=== PATIENT | male | born 1945 | race African-American/Black ===

== ENCOUNTER 2017-09-16 06:10 | Emergency (ER) | payer MEDICARE, MEDICAID | END 2017-09-16 06:55 | disposition home or self-care (01) | LOC: ERS 06:10 | DX: Z43.1 Encounter for attention to gastrostomy (principal); E11.9 Type 2 diabetes mellitus without complications; E78.5 Hyperlipidemia, unspecified; I10 Essential (primary) hypertension | CPT/HCPCS: 43760; B4087 ==

== ENCOUNTER 2018-12-03 09:39 | Emergency (ER) | payer MEDICARE, MEDICAID | END 2018-12-03 11:20 | LOC: ERS 09:39 | DX: K94.23 Gastrostomy malfunction (principal); E11.9 Type 2 diabetes mellitus without complications; I10 Essential (primary) hypertension | CPT/HCPCS: 43762; B4087 ==

== ENCOUNTER 2018-12-24 04:20 | Emergency (ER) | payer MEDICARE, MEDICAID ==
--- NOTE | 2018-12-24 09:03 | RAD ---
PORTABLE AP ABDOMINAL RADIOGRAPH: Date: 12/24/18 HISTORY: Evaluate PEG tube placement. FINDINGS: Contrast was injected through the gastrostomy tube and a portable AP view of the abdomen was performe d. Images demonstrate gastrostomy tube within the region of the proximal body of the stomach. Contras t is seen within the stomach, and there is no contrast seen outside of the confines of the stomach to suggest extravasation of contrast. Bowel gas pattern is otherwise nonspecific with a moderate amount of retained fecal material seen in the region of the rectum. Prominent vascular calcifications are s een in the abdominal aorta involving the iliac and visualized femoral arteries. Degenerative changes are noted in the spine. IMPRESSION: Gastrostomy tube noted in place with contrast seen within the stomach. POS: [facility]
== END 2018-12-24 05:32 | disposition home or self-care (01) ==
LOC: ERS 04:20
DX: Z43.1 Encounter for attention to gastrostomy (principal); E11.9 Type 2 diabetes mellitus without complications; E78.5 Hyperlipidemia, unspecified; I10 Essential (primary) hypertension; F03.90 Unspecified dementia, unspecified severity, without behavioral disturbance, psychotic disturbance, mood disturbance, and anxiety; Z86.73 Personal history of transient ischemic attack (TIA), and cerebral infarction without residual deficits
CPT/HCPCS: 43762; 76000; B4087

== ENCOUNTER 2018-12-31 02:20 | Emergency (ER) | payer MEDICARE, MEDICAID | END 2018-12-31 03:18 | disposition home or self-care (01) | LOC: ERS 02:20 | DX: K94.23 Gastrostomy malfunction (principal); E11.9 Type 2 diabetes mellitus without complications; E78.5 Hyperlipidemia, unspecified; I10 Essential (primary) hypertension; F03.90 Unspecified dementia, unspecified severity, without behavioral disturbance, psychotic disturbance, mood disturbance, and anxiety; Z86.73 Personal history of transient ischemic attack (TIA), and cerebral infarction without residual deficits; Z79.899 Other long term (current) drug therapy; Z79.82 Long term (current) use of aspirin | CPT/HCPCS: 99283 ==

== ENCOUNTER 2019-01-23 21:32 | Emergency (ER) | payer MEDICARE, MEDICAID | END 2019-01-23 21:44 | LOC: ERS 21:32 | DX: Z43.1 Encounter for attention to gastrostomy (principal); E11.9 Type 2 diabetes mellitus without complications; E78.5 Hyperlipidemia, unspecified; I10 Essential (primary) hypertension; I63.9 Cerebral infarction, unspecified; F03.90 Unspecified dementia, unspecified severity, without behavioral disturbance, psychotic disturbance, mood disturbance, and anxiety; Z79.899 Other long term (current) drug therapy; Z79.82 Long term (current) use of aspirin; Z86.73 Personal history of transient ischemic attack (TIA), and cerebral infarction without residual deficits | CPT/HCPCS: 43762 ==

== ENCOUNTER 2019-02-17 14:53 | Emergency (ER) | payer MEDICARE, MEDICAID | END 2019-02-17 15:15 | LOC: ERS 14:53 | DX: Z43.1 Encounter for attention to gastrostomy (principal); E11.9 Type 2 diabetes mellitus without complications; E78.5 Hyperlipidemia, unspecified; I10 Essential (primary) hypertension; Z86.73 Personal history of transient ischemic attack (TIA), and cerebral infarction without residual deficits; F03.90 Unspecified dementia, unspecified severity, without behavioral disturbance, psychotic disturbance, mood disturbance, and anxiety | CPT/HCPCS: 43762; B4087 ==

== ENCOUNTER 2019-02-18 20:59 | Emergency (ER) | payer MEDICARE, MEDICAID ==
--- NOTE | 2019-02-18 21:41 | RAD ---
EXAM: CHEST ONE VIEW: History: Cough. Comparison: 04-11-10 FINDINGS: Less than optimal inspiration. Borderline cardiomegaly. Old granulomatous disease. No confluent pneum onia or overt edema. IMPRESSION: Less than optimal inspiration with borderline cardiomegaly without confluent pneumonia or overt edema . Old granulomatous disease. Atherosclerosis of the aorta. POS: [facility]
== END 2019-02-18 23:42 | disposition home or self-care (01) ==
LOC: ERS 20:59
DX: J20.9 Acute bronchitis, unspecified (principal); E11.9 Type 2 diabetes mellitus without complications; E78.5 Hyperlipidemia, unspecified; I10 Essential (primary) hypertension; F03.90 Unspecified dementia, unspecified severity, without behavioral disturbance, psychotic disturbance, mood disturbance, and anxiety; Z86.73 Personal history of transient ischemic attack (TIA), and cerebral infarction without residual deficits
CPT/HCPCS: 71045; 94760

== ENCOUNTER 2019-07-04 20:04 | Inpatient (IN) | payer MEDICARE, OTHER ==
[2019-07-04 20:50] LABS: #Lymphocytes 1.3 thou/uL (1.20-3.40); #Monocytes 0.5 thou/uL (0.11-0.59); #Neutrophils 6.7 thou/uL (1.40-6.50); %Basophils 0.1 % (0.0-1.0); %Eosinophils 0.4 % (0.0-10.0); %Lymphocytes 15.4 % (21.0-51.0); %Monocytes 5.3 % (0.0-10.0); %Neutrophils 78.8 % (42.0-75.0); Mean Corpuscular HGB CONC 33.2 g/dL (32.0-36.0); Mean Corpuscular Hemoglobin 29.5 pg (27.0-31.0); Mean Corpuscular Volume 88.8 fL (78.0-98.0); Mean Platelet Volume 10.3 fL (7.4-10.4); Platelet Count 156 thou/uL (130-400); RBC Distribution Width 16.2 % (11.5-14.5); Red Blood Cell (RBC) Count 4.07 mill/uL (4.70-6.10); White Blood Cell (WBC) Count 8.5 thou/uL (4.8-10.8)
[2019-07-04 21:07] LABS: ALT (SGPT) 17 U/L (8-55); AST (SGOT) 26 U/L (5-34); Albumin 3.2 g/dL (3.4-4.8); Alkaline Phosphatase 92 U/L (40-150); Anion Gap 12 mmol/L (10-20); BUN (Urea Nitrogen) 34 mg/dL (8.4-25.7); Bilirubin, Total 0.3 mg/dL (0.2-1.2); Calc. Creatinine Clearance 0 mL/min (70-130); Calcium 8.7 mg/dL (7.8-10.44); Carbon Dioxide 30 mmol/L (23-31); Chloride 99 mmol/L (98-107); Estimated GFR-MDRD 68; Globulin 4.1 g/dL (2.4-3.5); Glucose 173 mg/dL (83-110); Potassium 4.9 mmol/L (3.5-5.1); Protein, Total 7.3 g/dL (5.8-8.1); Sodium 136 mmol/L (136-145)
[2019-07-04 21:07] LABS: Bacteria/HPF None Seen HPF (None Seen); Bilirubin Negative (Negative); Blood, Urine Trace (Negative); Clarity Clear (Clear); Glucose, Urine (Dipstick) 300 mg/dL (Negative); Leukocyte Negative Leu/uL (Negative); Nitrite Negative (Negative); Protein, Urine (Dipstick) 300 mg/dL (Neg-Trace); RBC/HPF 0-3 HPF (0-3); Squamous Epithelial None Seen HPF (0-3); Urobilinogen Normal mg/dL (Less than 2); WBC/HPF 0-3 HPF (0-3)
--- NOTE | 2019-07-04 21:30 | RAD ---
RADIOGRAPH CHEST 1 VIEW: DATE: 07/04/2019 TIME: 8:46 PM HISTORY: 73-year-old male with dyspnea COMPARISON: 02/18/2019 FINDINGS: New finding of bilateral pleural effusions and diffuse interstitial-alveolar infiltrates throughout t he bilateral mid and lower lung zones. No pneumothorax. IMPRESSION: 1. Bilateral pleural effusions. 2. Diffuse bilateral pulmonary densities: Pulmonary edema versus pneumonia. Pulmonary edema is favore d.
[2019-07-04 21:39] LABS: CKMB 4.5 ng/mL (0-6.6)
[2019-07-04] MEDS ORDERED: Furosemide 40 MG/4 ML VIAL ONE (21:50)
[2019-07-04] MEDS ORDERED: Nitroglycerin 2% Ointment 1 INCH/1 GM Packet ONE (21:50)
[2019-07-04] MEDS ORDERED: Enoxaparin Sodium 100 MG/ML SYRINGE ONE (23:18)
[2019-07-04] MEDS ORDERED: Acetaminophen 325 MG TAB PO PRN (23:19)
[2019-07-04] MEDS ORDERED: Bisacodyl 10 MG SUPP PR PRN (23:19)
[2019-07-04] MEDS ORDERED: Dextrose 50% Abboject 50 ML SYRINGE SLOW IVP PRN (23:19)
[2019-07-04] MEDS ORDERED: Dextrose 5% in Water 1,000 ML IV PRN (23:19)
[2019-07-04] MEDS ORDERED: HumaLOG 300 UNITS/3 ML VIAL SC PRN ×2 (23:19)
[2019-07-04] MEDS ORDERED: Ondansetron PF 4 MG/2 ML Vial IVP PRN (23:19)
[2019-07-05 00:37] LABS: CKMB 6.9 ng/mL (0-6.6)
--- NOTE | 2019-07-05 01:46 | HP ---
REASON FOR ADMISSION: Acute CHF exacerbation, likely new onset; acute kidney injury. HISTORY OF PRESENTING ILLNESS: Please note majority of this history is obtained by talking to ER physician and patient's daughter as the patient is not oriented. He was transferred from [facility] for complaints of shortness of breath. He was initially placed on 2 L and later was increased to 3 L despite which had low saturations. Patient finally was placed on BiPAP. Patient was recently treated for pneumonia a week back. He currently gives a blank stare to verbal stimuli and does not follow. Per daughter, Ms. Fay, patient holds a conversation and he can talk and he is usually very stubborn and does not talk initially. Multiple attempts by me to make him talk has been unsuccessful here. He is bed-bound after suffering right hemiplegia in 2008. PAST MEDICAL AND SURGICAL HISTORY: History of CVA with right hemiplegia; dysphagia with PEG tube; history of bronchitis; history of anemia; hypertension; chronic muscle wasting; seizure disorder; history of tracheostomy with reversal; diabetes mellitus, type 2; and history of gastroparesis. CURRENT MEDICATIONS: Per group home records, patient is on: 1. Aspirin 81 mg p.o. daily. 2. Clonidine p.r.n. 3. Lactulose 20 g p.r.n. 4. Keppra 500 mg twice daily. 5. Losartan 50 mg daily. 6. Metoprolol 50 mg twice daily. 7. Ferrous sulfate 220 mg twice daily. 8. Multivitamin one tablet daily. 9. Singulair 10 mg daily. 10. Humulin coverage. 11. He is on Glucerna 1.5 Mendez 60 mL/hour for a total of 20 hours a day. 12. DuoNeb q.6 hourly p.r.n. ALLERGIES: NO KNOWN DRUG ALLERGIES. PERSONAL HISTORY: He is currently a group home resident at [facility]. Does not abuse alcohol or drugs. Prior to going to [facility], he was at [facility]. FAMILY HISTORY: Both parents are diseased per patient's daughter. She does not know the exact cause of the . CODE STATUS: Full. Power of real estate attorney is both his daughters, Ms. Manolo Fay and Ms. Manolo Rust. REVIEW OF SYSTEMS: Cannot be obtained as the patient is not noncommunicative at present. PHYSICAL EXAMINATION: GENERAL: Patient is a 73-year-old male who is currently not in any acute distress and is tolerating BiPAP. VITAL SIGNS: Blood pressure 150/90, pulse 94 per minute, respiratory rate 18 per minute, temperature 98 degrees Fahrenheit, and saturating 95% on BiPAP. NECK: Supple. There is elevated JVD. HEENT: Eyes; extraocular muscles intact. Pupils reacting to light. Oral cavity, mucous membranes are moist. No exudates or congestion. CARDIOVASCULAR: S1 and S2 heard, S3 plus. RESPIRATORY: Air entry 1+ bilateral. Scattered rales plus bilateral coarse rhonchi. ABDOMEN: Soft. There is abdominal wall edema. PEG tube is present. Bowel sounds are heard. No tenderness, rigidity, or guarding. EXTREMITIES: Patient has edema in the upper thigh, lower abdominal wall areas. No calf tenderness. VASCULAR: Peripheral pulses 1+ bilateral. No ischemic ulcerations or gangrene. CENTRAL NERVOUS SYSTEM: Patient has right hemiplegia. He also has atrophy of small muscles of both hands and forearms. He appears to have flexion contractures of both upper extremity a bit, at least to around 30 degrees. PSYCHIATRIC: Cannot be assessed as patient is noncommunicative and gives a blank stare to verbal stimuli. LABORATORY DATA: EKG done shows normal sinus rhythm at 98 beats per minute. There is T-inversion seen in V4 to V6 and lead I, aVL. Chest x-ray done, shows bilateral pleural effusions with pulmonary vascular congestion. BNP is 2667. Troponin I is indeterminate, peaking up to 0.23. CK-MB 6.9, albumin 3.2, BUN 34, creatinine 1.26, and serum glucose 173. Liver enzymes within normal limits. White count of 8, H and H 12 and 36, platelet count is 156, and MCV is 88 with 78% neutrophils. CLINICAL IMPRESSION AND PLAN: Patient will be admitted to [facility] for acute respiratory failure with hypoxia secondary to congestive heart failure exacerbation, likely new onset. We will obtain an echo with 2D Doppler for LV function. He will be on Lasix 40 mg IV at 6 a.m. and at 2 p.m. He has received 80 mg of Lasix in the ER. Patient also apparently received a liter of normal saline in the ER with initial suspicion for pneumonia. We will continue his aspirin, Keppra, Lopressor, and Singulair as before. Patient will be on a small dose of Coreg and a lower dose of Cozaar to accommodate for diuresis. We will obtain consultation with Dr. Julien and Dr. Bishop, who are on-call for Cardiology and Pulmonology respectively in the morning. I have discussed code status with both the daughters and both want him to be full code. Job ID: [id number] MTDD
[2019-07-05 02:37] LABS: #Lymphocytes 1.5 thou/uL (1.20-3.40); #Monocytes 0.5 thou/uL (0.11-0.59); #Neutrophils 5.7 thou/uL (1.40-6.50); %Basophils 0.5 % (0.0-1.0); %Lymphocytes 18.9 % (21.0-51.0); %Monocytes 6.3 % (0.0-10.0); %Neutrophils 74.3 % (42.0-75.0); Hemoglobin 12.1 g/dL (14.0-18.0); Mean Corpuscular HGB CONC 33.1 g/dL (32.0-36.0); Mean Corpuscular Hemoglobin 29.7 pg (27.0-31.0); Mean Corpuscular Volume 89.9 fL (78.0-98.0); Mean Platelet Volume 9.9 fL (7.4-10.4); Platelet Count 223 thou/uL (130-400); Red Blood Cell (RBC) Count 4.05 mill/uL (4.70-6.10); White Blood Cell (WBC) Count 7.7 thou/uL (4.8-10.8)
[2019-07-05 03:07] LABS: Anion Gap 12 mmol/L (10-20); BUN (Urea Nitrogen) 33 mg/dL (8.4-25.7); Calc. Creatinine Clearance 0 mL/min (70-130); Calcium 8.8 mg/dL (7.8-10.44); Carbon Dioxide 30 mmol/L (23-31); Chloride 101 mmol/L (98-107); Estimated GFR-MDRD 72; Glucose 163 mg/dL (83-110); Potassium 4.2 mmol/L (3.5-5.1); Sodium 139 mmol/L (136-145)
[2019-07-05] MEDS ORDERED: Furosemide 40 MG/4 ML VIAL ONE (06:11)
[2019-07-05] MEDS: Furosemide 40 MG/4 ML VIAL SLOW IVP SCH ×2 (06:12→15:29)
[2019-07-05] MEDS ORDERED: Carvedilol 3.125 MG TAB PO SCH (09:00)
[2019-07-05] MEDS ORDERED: Metoprolol Tartrate 25 MG TAB PO SCH (09:00)
[2019-07-05] MEDS ORDERED: Aspirin Chewable 81 MG TAB ONE (10:00)
[2019-07-05] MEDS ORDERED: Metoprolol Tartrate 25 MG TAB ONE ×2 (10:00→11:00)
[2019-07-05] MEDS ORDERED: Famotidine/PF 20 mg/2ml Vial ONE (10:00)
[2019-07-05] MEDS ORDERED: Enoxaparin Sodium 40 MG/0.4 ML SYRINGE ONE (10:00)
[2019-07-05] MEDS ORDERED: Nitroglycerin 2% Ointment 1 INCH/1 GM Packet ONE (10:00)
[2019-07-05] MEDS ORDERED: Famotidine 20 MG TAB ONE (10:01)
[2019-07-05] MEDS: Enoxaparin Sodium 40 MG/0.4 ML SYRINGE SC SCH (10:15)
[2019-07-05] MEDS: Aspirin Chewable 81 MG TAB PO SCH ×2 (10:16→10:59)
[2019-07-05] MEDS: Famotidine 20 MG TAB PO SCH ×3 (10:16→23:00)
[2019-07-05] MEDS: Nitroglycerin 2% Ointment 1 INCH/1 GM Packet TOP SCH ×2 (10:17→23:00)
[2019-07-05] MEDS ORDERED: Sodium Chloride 0.9% (PF) 10 ML VIAL FS PRN (10:37)
[2019-07-05] MEDS: Losartan 25 MG TAB PO SCH (10:41)
[2019-07-05] MEDS: Senokot S 8.6-50 MG TAB PO SCH ×2 (10:41→23:00)
[2019-07-05] MEDS ORDERED: Pantoprazole 40 MG VIAL IVP SCH (10:45)
[2019-07-05] MEDS: levETIRAcetam 500 mg/5 ml Oral Solution PO SCH ×2 (11:17→23:00)
[2019-07-05] MEDS ORDERED: Pantoprazole 40 MG VIAL ONE (12:04)
--- NOTE | 2019-07-05 16:47 | PRG ---
DATE OF SERVICE: 07/05/2019 SUBJECTIVE: The patient is seen and examined at the bedside. His family member ladjenny is present in the room during my visit, his sister I believe. The patient is quite drowsy, but arousable, but he falls asleep quite quickly, which is quite normal according to her. He is A [facility] resident, who was found to be short of breath and sent out to the emergency room for further evaluation. OBJECTIVE: VITAL SIGNS: Blood pressure is 130/76, pulse is 87, respirations 20, and O2 saturation is 100% on nasal cannula 2 L/minute. HEENT: Sclerae are nonicteric. Conjunctivae are somewhat palish. Oral mucosa is moist. LUNGS: Breath sounds diminished at both bases. Few crackles at both bases. No wheezing. HEART: S1 and S2, somewhat distant. No S3. No S4. ABDOMEN: Soft, nontender, and nondistended. EXTREMITIES: No clubbing, cyanosis, or edema. NEUROLOGICAL: He is comatose. He falls asleep quickly. He does not respond too much, if anything just very short words only. He does not show any motor deficits in any of his extremities, but he does not really follow my commands very well. LABORATORY DATA: Showed white count of 7.7, hemoglobin 12.1, hematocrit 36.5, and platelet count is 223,000. Normal electrolytes. BUN of 33, creatinine 1.21, and glucose 163. Troponin 0.348. BNP from yesterday 2667.5. Third generation TSH 2.32. Microbiology; urine culture, no growth. Blood cultures x2, no growth. IMPRESSION: 1. Congestive heart failure. Echo is still pending. We will diurese him. Use nitrates. Cardiology consultation is pending. 2. History of seizure disorder. 3. Anemia. 4. History of bronchitis. 5. Percutaneous endoscopic gastrostomy tube in place. 6. Cerebrovascular accident with dysphagia per history. 7. Diabetes mellitus, type 2. 8. History of gastroparesis. PLAN: Plan is to continue his diuretics. Continue BiPAP as needed. Now, he is on nasal cannula, doing quite well on 2 L by nasal cannula. We will continue his beta-kevin, which is metoprolol 25 mg twice a day. We will continue Accu-Cheks a.c. and at bedtime. Continue his carvedilol 3.125 mg twice a day. Bow Making Machine Operator to see the patient, but I do not see any infectious component to this problem. We will continue DuoNeb every 6 hours and we will watch his comatose state since per family. He is not very responsive of some days, although some days he is much more responsive. We will try to get PT and OT and we will get medical records from the [facility]. Job ID: [id number]
[2019-07-05] MEDS: Atorvastatin Calcium 40 MG TAB PO SCH (22:59)
[2019-07-05] MEDS: Carvedilol 3.125 MG TAB PO SCH (22:59)
[2019-07-05] MEDS: Montelukast Sodium 10 mg Tablet PO SCH (23:00)
[2019-07-05] MEDS: Enoxaparin Sodium 80 MG/0.8 ML SYRINGE SC SCH (23:00)
--- NOTE | 2019-07-05 23:01 | CON ---
DATE OF CONSULTATION: HISTORY OF PRESENT ILLNESS: The patient is an unfortunate 73-year-old gentleman with a history of a large cerebrovascular accident who was admitted with increasing dyspnea. The patient has no previous cardiac history. He had suffered a large stroke in 2008. The patient has been at [facility]. He was found to have increasing dyspnea. He is aphasic, unable to give a coherent history. The patient was admitted for further evaluation. PAST MEDICAL HISTORY: 1. Cerebrovascular accident. 2. Hypertension. 3. Anemia. 4. Gastroparesis. PAST SURGICAL HISTORY: . SOCIAL HISTORY: Lives in . FAMILY HISTORY: , unobtainable. ALLERGIES: NO KNOWN DRUG ALLERGIES. MEDICATIONS: See nursing list. REVIEW OF SYSTEMS: Not obtainable. PHYSICAL EXAMINATION: GENERAL: Elderly gentleman who is aphasic. VITAL SIGNS: Blood pressure 142/92. NECK: Full. LUNGS: Have coarse breath sounds bilateral. HEART: Regular rate and rhythm. Normal S1, S2. ABDOMEN: Distended. EXTREMITIES: Showed 2+ bilateral edema. VASCULAR: Radial pulses 2+. LABORATORY DATA: White blood cell count 7.7, hemoglobin 12.1, hematocrit 36.5, platelets 223. Sodium is 139, potassium 4.2, chloride 101, bicarbonate 30, BUN 33, creatinine 1.2. Troponin was 1.3. IMPRESSION: 1. Congestive heart failure. 2. Cardiomyopathy. 3. Non-Q-wave myocardial infarction. 4. Diabetes mellitus. 5. Hypertension. 6. Aphasia. This unfortunate gentleman who had a severe cerebrovascular accident and aphasic presents with congestive heart failure. He may have suffered a non-Q-wave myocardial infarction. The patient's overall prognosis is very guarded. Medical therapy is recommended with his severe underlying illnesses. We will check the patient's echocardiogram. We will follow this patient with you through his hospitalization. Job ID: [id number]
--- NOTE | 2019-07-06 00:52 | CON ---
DATE OF CONSULTATION: 07/05/2019 REASON FOR CONSULTATION: Blood through PEG tube. HISTORY OF PRESENT ILLNESS: The patient is a 73-year-old male with past medical history of cerebrovascular accident with right hemiplegia, dysphagia status post PEG tube placement, anemia, hypertension, chronic wasting syndrome, seizures, diabetes, gastroparesis, and possible dementia initially presenting with complaints of respiratory distress. Unfortunately, the patient did not contribute to interviewing or questions by myself, so all information obtained was through chart review and by speaking with nursing staff. The patient was recently residing at [facility] and recently began to complain of increased shortness of breath that was not amenable to conservative management at the [facility]. With this increasing shortness of breath, he was ultimately transferred to [facility] where he was noted to be in respiratory distress that was not initially responding to nasal cannula, but instead escalated to BiPAP in order to maintain adequate oxygenation. Per labs, he was also noted to have elevated troponins consistent with an NSTEMI and ultimately admitted for a CHF exacerbation. However, during the course of this hospitalization, the PEG tube was flushed and upon withdrawing some of the fluid from the stomach, it was noted to be dark brown/reddish in coloration concerning for the presence of active GI bleeding. This was present only this morning and per speaking with nursing staff in the IMCU, this has not recurred since that time. Otherwise, there have not been any observed episodes of vomiting, diarrhea, constipation or the patient grimacing from abdominal pain. REVIEW OF SYSTEMS: A 10-category review of systems could not be obtained due to the patient's inability to contribute to the interview. PAST MEDICAL HISTORY: As per HPI. PAST SURGICAL HISTORY: Tracheostomy placement with reversal, endoscopic PEG tube placement. FAMILY HISTORY: No mention of GI malignancies within the chart. SOCIAL HISTORY: No mention of tobacco, alcohol, or illicit drug use. Currently being a [facility] resident in [facility]. OUTPATIENT MEDICATIONS: Reviewed. ALLERGIES: NO KNOWN DRUG ALLERGIES. PHYSICAL EXAMINATION: VITAL SIGNS: Temperature 97.4, pulse 94, blood pressure 157/79, respiratory rate 18, saturating 100% on room air. GENERAL: The patient was lying in bed, in no acute distress. Not alert and not oriented to self release or at least not willing to contribute to conversation. HEENT: Normocephalic, atraumatic. No scleral icterus noted. NECK: Supple. CARDIOVASCULAR: Tachycardic rate, but regular rhythm. No discernible murmurs, gallops, or rubs. RESPIRATORY: Coarse breath sounds heard in the bilateral lower lung bases, otherwise clear to auscultation. ABDOMEN: Normoactive bowel sounds. Soft, nontender, nondistended. EXTREMITIES: No cyanosis, clubbing, or edema. LABORATORY DATA: CBC with a white blood cell count of 7.7, hemoglobin 12.1, hematocrit 36.5, platelets 223. Chemistry with a sodium of 139, potassium 4.2, chloride 101, CO2 of 30, BUN 33, creatinine 1.21, glucose 163. AST 26, ALT 17, alkaline phosphatase 92, total bilirubin 0.3. Troponin up trending with maximum value at 1.3. BNP elevated at 2667. IMAGING DATA: Chest x-ray obtained on July 04, 2019, showed bilateral pleural effusion with diffuse bilateral pulmonary densities concerning for pulmonary edema versus pneumonia (pulmonary edema favored). ASSESSMENT AND PLAN: The patient is a 73-year-old male with past medical history of cerebrovascular accident with right hemiplegia, chronic wasting syndrome, anemia, hypertension, seizure disorder, diabetes, gastroparesis, and oropharyngeal dysphagia status post PEG presenting with acute respiratory distress secondary to congestive heart failure and further complicated by mbn-BQ-ccnaerz elevation myocardial infarction and also dark red material concerning for upper gastrointestinal bleeding. Upper GI bleeding: The patient is initially presenting to the hospital with complaints of respiratory distress and what appears to be an acute on chronic congestive heart failure exacerbation. However, upon attempting to use his PEG tube, a small amount of dark brown/reddish material was withdrawn concerning for the presence of blood. He has not had any further episodes while being transferred to the [facility] nor has he had any episodes of hematemesis, melena, or hematochezia since admission. Upon looking at his labs, his H and H have remained fairly stable over the last 6 hours. At this time, it is unclear whether or not the patient is actively bleeding, but given his acute csa-KB-rhlgehf elevation myocardial infarction as well as respiratory distress, endoscopic evaluation at this time would be difficult in terms of sedation type issue. Differential could include retained food stuffs with his gastroparesis generating a reddish/brown coloration, esophagitis, gastritis, arteriovenous malformation, Dieulafoy lesion, peptic ulcer disease (less likely) and/or GI neoplasm (less likely). RECOMMENDATIONS: 1. We would continue to trend H and H and transfuse as necessary to maintain an H and H of 7/. 2. Continue to monitor clinically for signs of active GI bleeding. 3. We would attempt to flush PEG tube again to determine if any evidence of continued bleeding. 4. We would continue with anticoagulation in light of active NSTEMI and continue to evaluate for possible GI bleeding as a challenge. 5. Continue pantoprazole IV b.i.d. in light of possible active GI bleeding. 6. We would maintain good PEG tube care with special attention not to tighten the external bumper too tight, which could lead to ulceration of the anterior gastric wall. We will continue to follow. Please call with any questions. Job ID: [id number]
--- NOTE | 2019-07-06 01:14 | CON ---
DATE OF CONSULTATION: HISTORY OF PRESENT ILLNESS: History is obtained from the ex-. Mr. French is a 73-year-old male, who has a history of CVA. He was hospitalized here and then sent to [place] for a long-term acute care and she says he reached a point, where he was actually able to do transfers. His CVA did leave him hemiplegic. Presented late last night with tachypnea. His ex- says that he had been "gurgling" since last Monday when she went to check on him. The patient's daughter and the ex- checked on him intermittently. He has recently at [facility]. Apparently was treated with oxygen and BiPAP in the emergency department. He was not on BiPAP when seen by me this afternoon in consultation. PAST MEDICAL HISTORY: Otherwise remarkable for trach and PEG, hypertension, diabetes, seizure disorder, and diabetic gastroparesis. MEDICATIONS: Prior to admission, he is on: 1. Aspirin. 2. Catapres. 3. Keppra. 4. Losartan. 5. Metoprolol. 6. Singulair. 7. Glucerna tube feeds. 8. DuoNeb as needed. SOCIAL HISTORY: He is nonsmoker and nondrinker. ALLERGIES: HE HAS NO DRUG ALLERGIES. REVIEW OF SYSTEMS: Not obtainable. FAMILY HISTORY: Negative for lung disease in early age. PHYSICAL EXAMINATION: GENERAL: He is nonverbal. VITAL SIGNS: Heart rate 81, respiratory rate 17, oximetry is 100%. He is on 2 L, blood pressure 148/78. HEENT: Sclerae are anicteric. He would not cooperate for extraocular movements. NECK: Without lymphadenopathy. LUNGS: Remarkable for bilateral crackles. HEART: Regular rhythm, grade 2/6 systolic murmur. ABDOMEN: Soft without guarding, rigidity, or masses. EXTREMITIES: Without asymmetry, did have edema, probably 1+ when I saw him. LABORATORY DATA: White count 7.7, hemoglobin 12.1, platelets 223. Electrolytes are normal. BUN 33, creatinine 1.21. BNP 2667. Chest radiograph shows diffuse alveolar infiltrates in bilateral effusions. IMPRESSION: 1. Congestive heart failure, new onset. 2. History of cerebrovascular accident in the past. 3. Diabetes. 4. Acute on chronic kidney disease. 5. History of hypertension. I met with his ex-, answered all of her questions. I have asked her to get with her daughter and discuss code status. He will need to be seen by Cardiology after his echocardiogram is reviewed. TIME SPENT: This is a 50-minute consult, 50% of the time spent on the unit coordinating care. Job ID: [id number]
[2019-07-06 05:07] LABS: Hemoglobin 11.9 g/dL (14.0-18.0)
[2019-07-06] MEDS: Furosemide 40 MG/4 ML VIAL SLOW IVP SCH ×2 (05:48→15:02)
[2019-07-06 08:03] LABS: Anion Gap 14 mmol/L (10-20); BUN (Urea Nitrogen) 30 mg/dL (8.4-25.7); Calc. Creatinine Clearance 59 mL/min (70-130); Calcium 8.7 mg/dL (7.8-10.44); Carbon Dioxide 30 mmol/L (23-31); Chloride 100 mmol/L (98-107); Estimated GFR-MDRD 64; Glucose 104 mg/dL (83-110); Potassium 3.8 mmol/L (3.5-5.1); Sodium 140 mmol/L (136-145)
[2019-07-06] MEDS: Losartan 25 MG TAB PO SCH ×2 (10:22→20:12)
[2019-07-06] MEDS: Famotidine 20 MG TAB PO SCH ×2 (10:22→20:12)
[2019-07-06] MEDS: Carvedilol 3.125 MG TAB PO SCH ×2 (10:22→20:12)
[2019-07-06] MEDS: Senokot S 8.6-50 MG TAB PO SCH ×2 (10:23→20:12)
[2019-07-06] MEDS: Aspirin 325 MG TAB PO SCH (10:23)
[2019-07-06] MEDS: Pantoprazole 40 MG VIAL IVP SCH ×2 (10:23→20:13)
[2019-07-06] MEDS: Nitroglycerin 2% Ointment 1 INCH/1 GM Packet TOP SCH (10:23)
[2019-07-06] MEDS: Enoxaparin Sodium 80 MG/0.8 ML SYRINGE SC SCH (10:23)
[2019-07-06] MEDS: Enoxaparin Sodium 40 MG/0.4 ML SYRINGE SC SCH (10:24)
[2019-07-06] MEDS: levETIRAcetam 500 mg/5 ml Oral Solution PO SCH ×2 (10:35→20:13)
--- NOTE | 2019-07-06 11:43 | PRG ---
DATE OF SERVICE: 07/06/2019 SUBJECTIVE: The patient is seen and examined at the bedside. He is still quite drowsy and aphasic. He is arousable. He tries to follow my simple commands. OBJECTIVE: VITAL SIGNS: Blood pressure is 135/79, pulse is 107, respiratory rate is 22, O2 saturation is 96% on 2 L by nasal cannula. HEENT: His pupils are responding to light properly. Sclerae are nonicteric. Oral mucosa is moist. NECK: Supple. LUNGS: Breath sounds diminished at both bases with bilateral few crackles at both bases. No wheezing. HEART: S1 and S2 normal. No S3. No S4. ABDOMEN: Soft. Mildly distended, nontender. Somewhat obese. EXTREMITIES: 1+ peripheral edema, similar bilaterally. NEUROLOGICAL: He is awake. He is a kind of aphasic. He is able to move his 4 extremities, and he follows my simple commands. LABORATORY DATA: Labs showed a hemoglobin of 11.9, hematocrit 36.3. Normal electrolytes. BUN of 30, creatinine of 1.34, glucose of 121. Troponin 0.348. IMPRESSION: 1. Congestive heart failure. Echocardiogram is still pending. device sales consultant, Dr. Julien's recommends to continue current regimen. 2. Cardiomyopathy. 3. Non-Q-wave myocardial infarction type 2. 4. Diabetes mellitus. 5. Hypertension. 6. Gastrointestinal bleed. PLAN: I am going to continue diuresis with IV Lasix. We will continue PPI and IV push every 12 hours. We will continue carvedilol for his congestive heart failure. We will continue Keppra and losartan. We will continue statin. He was started on full dose of Lovenox 80 mg subcutaneously every 12 hours, we will continue that, and we will have PT and OT involved. Job ID: [id number]
[2019-07-06 14:59] LABS: Troponin I 1.457 ng/mL (< 0.028)
[2019-07-06 17:22] LABS: Critical Call Chem Troponin I RESULT DECREASING; Troponin I 1.436 ng/mL (< 0.028)
--- NOTE | 2019-07-06 17:53 | PRG ---
DATE OF SERVICE: 07/06/2019 SUBJECTIVE: Bobby French is in no distress. OBJECTIVE: VITAL SIGNS: He is afebrile. Heart rate is 97, respiratory rate 18, blood pressure 131/80. Still nonverbal. Intake and outputs not recorded. LUNGS: Clear. HEART: Regular rhythm. ABDOMEN: Soft. Echocardiogram shows ejection fraction of 10% to 15%. IMPRESSION: 1. New severe systolic cardiomyopathy. 2. Pericardial effusion. 3. Bilateral pleural effusions. 4. History of cerebrovascular accident. PLAN: Continue supportive care. Cardiology should be consulted in my opinion. There is no family in the room again today. Code status clearly needs to be addressed. In my opinion, he is not a candidate for any type of invasive cardiac workup. He should proceed forward with medical management. His ex- is very appreciative of the care given so far. Job ID: [id number]
--- NOTE | 2019-07-06 18:35 | PRG ---
DATE OF SERVICE: 07/06/2019 REASON FOR CONSULTATION: Blood through PEG tube. SUBJECTIVE: The patient is continued to be nonverbal with no responses to active questioning. Per nursing staff, the patient did have some minimal amount of dark reddish/brownish material coming through his PEG tube, but has not displayed any other evidence of overt GI bleeding including hematemesis, melena, or hematochezia. OBJECTIVE: VITAL SIGNS: Temperature 97.6, pulse 97, blood pressure 131/80, respiratory rate 24, and saturating 100% on room air. GENERAL: The patient is lying in bed, in no acute distress. The patient is not alert or oriented and has not responded to verbal stimuli. CARDIOVASCULAR: Tachycardic rate, but regular rhythm. RESPIRATORY: Coarse breath sounds heard in the bilateral lower lung bases. ABDOMEN: Normoactive bowel sounds. Soft, nontender, nondistended. PEG tube site is clean with no evidence of blood or clot material. EXTREMITIES: No cyanosis, clubbing, or edema. LABORATORY DATA: CBC with hemoglobin 11.9, hematocrit 36.3. Chemistry with sodium of 140, potassium 3.8, chloride 100, CO2 of 30, BUN 30, creatinine 1.34, glucose 104. IMAGING DATA: Echocardiogram was performed on July 06, 2019 which showed an ejection fraction estimated at 10% to 15% along with moderately increased left ventricular size, lyal-ur-iuuybrsj mitral regurgitation, and moderate circumferential pericardial effusion. ASSESSMENT AND PLAN: The patient is a 73-year-old male with past medical history of cerebrovascular accident with right hemiplegia, chronic wasting syndrome, anemia, hypertension, seizure disorder, diabetes, gastroparesis, and oropharyngeal dysphagia status post PEG tube placement, presenting with acute respiratory distress secondary to worsening congestive heart failure that has been complicated by a pqn-KV-[id number] elevation myocardial infarction and dark red material from his PEG tube concerning for an upper gastrointestinal bleed. Upper gastrointestinal bleed. The patient initially was admitted to the hospital with complaints of respiratory distress and noted to have an acute on chronic congestive heart failure exacerbation. During the course of this hospitalization, his ejection fraction has worsened and has severe cardiomyopathy in addition to presence of a yawrluaw-kt-votjv size pericardial effusion. However, while in the ER and once while in the IMCU, he did have return of dark reddish/brownish material from the PEG tube concerning for gastrointestinal bleed; however, this has not been reflected in his hemoglobin and hematocrit thus far with it being stable over the last 24 hours. He is currently on full anticoagulation as part of medical management for his NSTEMI, which is essentially gastrointestinal bleeding challenge. If the patient does not exhibit any further evidence of bleeding as noted on his H and H, then the material obtained from his PEG tube could be considered more dietary in nature. Endoscopic management at this time would be extremely difficult due to his respiratory and cardiac status. RECOMMENDATIONS: 1. We would continue to trend his H and H and transfuse as necessary to maintain an H and H of 7/. 2. Continue to monitor clinically for signs of active GI bleeding. 3. We would continue with routine PEG care with flushing of the PEG tube. 4. We would continue anticoagulation in light of active NSTEMI. 5. Continue pantoprazole IV b.i.d. in light of possible active GI bleeding. We will continue to follow. Please call with any questions. Job ID: [id number]
[2019-07-06] MEDS: Atorvastatin Calcium 40 MG TAB PO SCH (20:12)
[2019-07-06] MEDS: Montelukast Sodium 10 mg Tablet PO SCH (20:13)
[2019-07-07 05:54] VITALS: BMI 25.7
[2019-07-07] MEDS: Furosemide 40 MG/4 ML VIAL SLOW IVP SCH ×2 (05:54→14:52)
[2019-07-07] MEDS: Aspirin 325 MG TAB PO SCH (09:06)
[2019-07-07] MEDS: Senokot S 8.6-50 MG TAB PO SCH ×2 (09:06→20:09)
[2019-07-07] MEDS: Famotidine 20 MG TAB PO SCH ×2 (09:07→20:10)
[2019-07-07] MEDS: Losartan 25 MG TAB PO SCH ×2 (09:07→20:08)
[2019-07-07] MEDS: Carvedilol 3.125 MG TAB PO SCH (09:07)
[2019-07-07] MEDS: Enoxaparin Sodium 40 MG/0.4 ML SYRINGE SC SCH (09:07)
[2019-07-07] MEDS: Pantoprazole 40 MG VIAL IVP SCH ×2 (09:07→20:09)
[2019-07-07] MEDS: levETIRAcetam 500 mg/5 ml Oral Solution PO SCH ×2 (09:20→20:09)
--- NOTE | 2019-07-07 15:18 | PRG ---
DATE OF SERVICE: 07/07/2019 SUBJECTIVE: Bobby French is in no distress. He is actually sitting up in bed with one arm behind his head. He is watching TV. He makes eye contact. He is nonverbal. His niece is in the room, had not seen him in several days, but this is clearly a dramatic improvement compared to 3 days ago. OBJECTIVE: VITAL SIGNS: He is afebrile, heart rate 86, respiratory rate 14, oximetry is 98 on room air, blood pressure is 118/70. LUNGS: Unchanged. HEART: Unchanged. ABDOMEN: Unchanged. IMPRESSION: 1. History of cerebrovascular accident. 2. Newly diagnosis severe systolic cardiomyopathy with congestive heart failure on presentation. 3. Pericardial effusion with no clinical evidence of tamponade. 4. Bilateral pleural effusions secondary to heart failure. 5. Encephalopathy on presentation that appears to be improving on a daily basis, albeit slowly. 6. We will continue with supportive care. 7. In my opinion, he is not a candidate for cardiac catheterization. 8. He is also not a candidate for endoscopy without general anesthesia or intubation in my opinion. 9. He was seen by Gastroenterology for possible blood coming out of his PEG. Supportive care in my opinion is the best option or may be the only option given his poor functional status. Family does need to make a decision regarding resuscitation status. Job ID: [id number]
--- NOTE | 2019-07-07 15:55 | PDOC.HOSPP ---
- Subjective Encounter Date: 07/07/19 Encounter Time: 15:53 Subjective: APHASIC, NOT RESPONDING TO ANY QUESTION, STARING INTO SPACE, AWAKE BUT NOT ALERT - Objective Vital Signs & Weight: Vital Signs (12 hours) Temp Pulse Resp Pulse Ox 07/07/19 15:00 98.0 F 07/07/19 13:57 86 14 98 07/07/19 10:34 98.2 F 07/07/19 07:59 97 07/07/19 07:00 97.6 F 07/07/19 06:59 97 07/07/19 06:52 113 H 25 H 97 Weight Admit Weight 182 lb 1.6 oz Weight 179 lb 8 oz Most Recent Monitor Data Heart Rate from ECG 92 NIBP 118/70 NIBP BP-Mean 86 Respiration from ECG 28 SpO2 100 I&O: 07/06/19 07/07/19 07/08/19 06:59 06:59 06:59 Intake Total 714 100 Output Total 575 400 Balance -575 314 100 Result Diagrams: 07/06/19 04:38 07/06/19 07:37 Additional Labs: Accuchecks 07/07/19 07/07/19 07/06/19 10:09 05:42 20:04 POC Glucose 186 H 159 H 120 H 07/06/19 16:12 POC Glucose 87 Hospitalist ROS - Medication Medications: Active Medications Generic Name Dose Route Start Last Admin Trade Name Freq PRN Reason Stop Dose Admin Albuterol/Ipratropium 3 ml 07/05/19 01:00 07/07/19 13:57 Duoneb NEB 3 ml [id number] YESSICA Administration Aspirin 325 mg 07/06/19 09:00 07/07/19 09:06 Aspirin PO 325 mg DAILY YESSICA Administration Atorvastatin Calcium 40 mg 07/05/19 21:00 07/06/19 20:12 Lipitor PO 40 mg HS YESSICA Administration Carvedilol 6.25 mg 07/05/19 21:00 07/07/19 09:07 Coreg PO 6.25 mg BID YESSICA Administration Enoxaparin Sodium 40 mg 07/05/19 09:00 07/07/19 09:07 Lovenox SC 40 mg 0900 YESSICA Administration Famotidine 20 mg 07/05/19 09:00 07/07/19 09:07 Pepcid PO 20 mg BID YESSICA Administration Furosemide 40 mg 07/05/19 06:00 07/07/19 14:52 Lasix SLOW IVP 40 mg 0600,1400 YESSICA Administration Levetiracetam 500 mg 07/05/19 09:00 07/07/19 09:20 Keppra Oral Solution PO 500 mg BID YESSICA Administration Losartan Potassium 25 mg 07/06/19 21:00 07/07/19 09:07 Cozaar PO 25 mg BID YESSICA Administration Montelukast Sodium 10 mg 07/05/19 21:00 07/06/19 20:13 Singulair PO 10 mg QPM YESSICA Administration Pantoprazole Sodium 40 mg 07/06/19 09:00 07/07/19 09:07 Protonix IVP 40 mg Q12HR YESSICA Administration Senna/Docusate Sodium 2 tab 07/05/19 09:00 07/07/19 09:06 Senokot S PO 2 tab BID YESSICA Administration - Exam General Appearance: awake alert Eye: PERRL, anicteric sclera ENT: normocephalic atraumatic, no oropharyngeal lesions Neck: supple, symmetric, no JVD Heart: RRR, no murmur, no gallops, no rubs Respiratory: CTAB, no wheezes, no rales Gastrointestinal: soft, non-tender, non-distended Extremities: no cyanosis, no clubbing, 1+ LE edema Neurological: speech deficit Neurological - other findings: NO VERBAL OR PHYSICAL RESPONSE TO VERBAL STIMULI OR TOUCH Psychiatric: not oriented, somnolent Hosp A/P (1) Metabolic encephalopathy Code(s): G93.41 - METABOLIC ENCEPHALOPATHY Status: Acute (2) Cardiomyopathy Code(s): I42.9 - CARDIOMYOPATHY, UNSPECIFIED Status: Acute (3) Myocardial infarction type 2 Code(s): I21.A1 - MYOCARDIAL INFARCTION TYPE 2 Status: Acute (4) Severe systolic congestive heart failure Code(s): I50.20 - UNSPECIFIED SYSTOLIC (CONGESTIVE) HEART FAILURE Status: Acute - Plan CONTINUE IV lasix, Keppra Pleural and pericardiial effusion, but not at tamponade level Echo with ESHD: EF 10-15% No aggressive measures, medical treatment only Trend Hb for the concerns of GI Bleed, Hb for now is stable Continue PEG feeds
--- NOTE | 2019-07-07 17:53 | RAD ---
PORTABLE CHEST ONE VIEW: Date: 07-07-19 Time: 5:14 p.m. History: CHF. FINDINGS: Comparison made with exam of 07-04-19. The heart is enlarged. There has been interval improvement in the pulmonary vascular congestion and r ight pleural effusion. Left small pleural effusion is again seen. No pneumothoraces are identified. IMPRESSION: Resolving CHF. POS: [facility]
[2019-07-07] MEDS: Atorvastatin Calcium 40 MG TAB PO SCH (20:08)
[2019-07-07] MEDS: Montelukast Sodium 10 mg Tablet PO SCH (20:09)
[2019-07-07] MEDS: Carvedilol 25 MG TAB PO SCH (20:13)
--- NOTE | 2019-07-07 22:00 | PRG ---
DATE OF SERVICE: 07/07/2019 REASON FOR CONSULTATION: Blood through PEG tube. SUBJECTIVE: The patient continues to be nonverbal and does not respond to interviewing or questioning. Per nursing staff, the patient did have a dark-colored stool earlier today, but has not had any further episodes of this dark red/brown material coming from his PEG tube. He has not displayed any other evidence of overt GI bleeding. OBJECTIVE: VITAL SIGNS: Temperature 98, pulse 89, blood pressure 143/80, respiratory rate 19, saturating 99% on room air. GENERAL: The patient is lying in bed, in no acute distress. The patient is not alert or oriented with no response to verbal stimuli, that only noxious stimuli. CARDIOVASCULAR: Regular rate and rhythm. RESPIRATORY: Coarse breath sounds auscultated in the bilateral lower lung fish. ABDOMEN: Normoactive bowel sounds. Soft, nontender, nondistended. PEG tube site, clean with a minimal amount of mucus at the stoma itself. Dressings are clean, dry, intact. EXTREMITIES: No cyanosis, clubbing, or edema. LABORATORY DATA: Hemoglobin 11.9, hematocrit 36.3. IMAGING DATA: No current GI imaging is available for review. ASSESSMENT AND PLAN: 1. The patient is a 73-year-old male with past medical history of cerebrovascular accident with right hemiplegia, chronic wasting syndrome, anemia, hypertension, seizure disorder, diabetes, gastroparesis, and oropharyngeal dysphagia status post PEG tube placement, presenting with acute respiratory distress secondary to worsening congestive heart failure, complicated by a [id number] myocardial infarction as well as dark red material from the PEG tube concerning for an upper gastrointestinal bleed. 2. Upper gastrointestinal bleed. a. During the course of this hospitalization, the patient has been stabilized in terms of his respiratory and cardiac status, although an echocardiogram obtained the other day showed only an ejection fraction of 10% to 15%. He has had some dark-colored stools as well as some reddish/brown material emanating from the PEG tube, but despite full anticoagulation as not had any significant decrease in his hemoglobin and hematocrit consistent with active gastrointestinal bleeding. The patient is currently taking full-strength aspirin at this time, which could contribute to irritation to the lining of the stomach, and as such, would benefit from continued pantoprazole administration while on this medication. At this time, given his respiratory and cardiac status, he is not a good candidate for any sort of procedure, and with a lack of evidence of overt gastrointestinal bleeding and decrease of his hemoglobin and hematocrit, endoscopic evaluation is not indicated at this time. RECOMMENDATIONS: 1. Would continue to trend his hemoglobin and hematocrit and transfuse as necessary to maintain hemoglobin and hematocrit of 7/21. 2. Continue to monitor clinically for signs of active GI bleeding. 3. Continue routine PEG care. 4. Continue pantoprazole b.i.d. in light of possible active GI bleeding. Given lack of active GI bleeding as denoted by change in his hemoglobin and hematocrit, we will sign off. Please call with any additional questions. Job ID: [id number]
[2019-07-08 04:53] LABS: Anion Gap 11 mmol/L (10-20); BUN (Urea Nitrogen) 36 mg/dL (8.4-25.7); Calc. Creatinine Clearance 52 mL/min (70-130); Calcium 8.7 mg/dL (7.8-10.44); Carbon Dioxide 35 mmol/L (23-31); Chloride 102 mmol/L (98-107); Estimated GFR-MDRD 56; Glucose 175 mg/dL (83-110); Potassium 3.4 mmol/L (3.5-5.1); Sodium 145 mmol/L (136-145)
[2019-07-08] MEDS: Furosemide 40 MG/4 ML VIAL SLOW IVP SCH (06:20)
[2019-07-08] MEDS: Losartan 25 MG TAB PO SCH (09:44)
[2019-07-08] MEDS: Enoxaparin Sodium 40 MG/0.4 ML SYRINGE SC SCH (09:44)
[2019-07-08] MEDS: Famotidine 20 MG TAB PO SCH (09:44)
[2019-07-08] MEDS: Aspirin 325 MG TAB PO SCH (09:44)
[2019-07-08] MEDS: Carvedilol 25 MG TAB PO SCH (09:44)
[2019-07-08] MEDS: Senokot S 8.6-50 MG TAB PO SCH (09:45)
[2019-07-08] MEDS: Pantoprazole 40 MG VIAL IVP SCH (09:45)
[2019-07-08] MEDS: levETIRAcetam 500 mg/5 ml Oral Solution PO SCH (10:05)
--- NOTE | 2019-07-08 14:09 | PRG ---
DATE OF SERVICE: 07/08/2019 SUBJECTIVE: He is resting quietly in bed and has no acute complaints. OBJECTIVE: VITAL SIGNS: His temperature is 97.9, pulse 89, blood pressure 166/74. HEENT: Unremarkable. Neck: No adenopathy or JVD. LUNGS: Diminished breath sounds throughout. CARDIAC: S1 and S2. Regular. EXTREMITIES: Generalized edema. LABORATORY DATA: Sodium 145, potassium 3.4, chloride 102, CO2 of 35, BUN 36, creatinine 1.5, glucose 175. ASSESSMENT: 1. History of cerebrovascular accident. 2. Systolic heart failure. 3. Pericardial effusions. 4. Bilateral pleural effusions. 5. Encephalopathy. PLAN: Continuing conservative care with diuresis. He looks safe to transfer to the medical floor. Job ID: [id number]
[2019-07-08 15:33] VITALS: BP 166/74
[2019-07-08 15:40] VITALS: TEMP 97.8
[2019-07-09] MEDS ORDERED: Furosemide 40 MG TAB PO SCH (07:30)
== END 2019-07-08 17:42 | DRG 280 ==
LOC: ERS 20:04 → ERHOLD 23:41 → IMCU/EMU 07-05 12:46
PROVIDERS: ADMIT Internal Medicine; ATTEND Internal Medicine
DX: I13.0 Hypertensive heart and chronic kidney disease with heart failure and stage 1 through stage 4 chronic kidney disease, or unspecified chronic kidney disease (principal); J96.01 Acute respiratory failure with hypoxia; I21.A1 Myocardial infarction type 2; G93.41 Metabolic encephalopathy; I50.23 Acute on chronic systolic (congestive) heart failure; N17.9 Acute kidney failure, unspecified; I69.351 Hemiplegia and hemiparesis following cerebral infarction affecting right dominant side; R47.01 Aphasia; K92.2 Gastrointestinal hemorrhage, unspecified; I42.9 Cardiomyopathy, unspecified; E78.5 Hyperlipidemia, unspecified; N18.9 Chronic kidney disease, unspecified; E78.00 Pure hypercholesterolemia, unspecified; F03.90 Unspecified dementia, unspecified severity, without behavioral disturbance, psychotic disturbance, mood disturbance, and anxiety; E11.22 Type 2 diabetes mellitus with diabetic chronic kidney disease; D63.1 Anemia in chronic kidney disease; R13.10 Dysphagia, unspecified; G40.909 Epilepsy, unspecified, not intractable, without status epilepticus; Z79.4 Long term (current) use of insulin; Z93.0 Tracheostomy status; Z74.01 Bed confinement status; I69.391 Dysphagia following cerebral infarction; Z93.1 Gastrostomy status
CPT/HCPCS: 36415; 36416; 51701; 71045; 80048; 80053; 81003; 81015; 82553; 83605; 83880; 84145; 84443; 84484; 85014; 85018; 85025; 87040; 87086; 93005; 93306; 94640; 94660; 96361; 96372; 96374; C9113; J1650; J1940; J7620; S0028

== ENCOUNTER 2019-07-11 03:00 | Emergency (ER) | payer MEDICARE, MEDICAID ==
[2019-07-11 04:18] LABS: #Lymphocytes 1.6 thou/uL (1.20-3.40); #Monocytes 0.5 thou/uL (0.11-0.59); #Neutrophils 7.4 thou/uL (1.40-6.50); %Eosinophils 0.4 % (0.0-10.0); %Lymphocytes 17.2 % (21.0-51.0); %Neutrophils 77.4 % (42.0-75.0); Hemoglobin 11.9 g/dL (14.0-18.0); Mean Corpuscular HGB CONC 32.2 g/dL (32.0-36.0); Mean Corpuscular Hemoglobin 29.9 pg (27.0-31.0); Mean Corpuscular Volume 92.8 fL (78.0-98.0); Mean Platelet Volume 10.1 fL (7.4-10.4); Platelet Count 202 thou/uL (130-400); RBC Distribution Width 15.8 % (11.5-14.5); Red Blood Cell (RBC) Count 3.97 mill/uL (4.70-6.10); White Blood Cell (WBC) Count 9.5 thou/uL (4.8-10.8)
[2019-07-11 05:00] LABS: CKMB 1.7 ng/mL (0-6.6)
[2019-07-11 05:20] LABS: ALT (SGPT) 30 U/L (8-55); AST (SGOT) 25 U/L (5-34); Albumin 3.2 g/dL (3.4-4.8); Alkaline Phosphatase 82 U/L (40-150); Anion Gap 10 mmol/L (10-20); BUN (Urea Nitrogen) 46 mg/dL (8.4-25.7); Bilirubin, Total 0.3 mg/dL (0.2-1.2); Calc. Creatinine Clearance 0 mL/min (70-130); Calcium 8.8 mg/dL (7.8-10.44); Carbon Dioxide 37 mmol/L (23-31); Chloride 107 mmol/L (98-107); Estimated GFR-MDRD 48; Globulin 4.2 g/dL (2.4-3.5); Glucose 231 mg/dL (83-110); Potassium 4.2 mmol/L (3.5-5.1); Protein, Total 7.4 g/dL (5.8-8.1); Sodium 150 mmol/L (136-145)
[2019-07-11 06:45] LABS: Bilirubin Negative (Negative); Blood, Urine Negative (Negative); Clarity Turbid (Clear); Glucose, Urine (Dipstick) 300 mg/dL (Negative); Leukocyte 250 Leu/uL (Negative); Nitrite Negative (Negative); Protein, Urine (Dipstick) 300 mg/dL (Neg-Trace); RBC/HPF 0-3 HPF (0-3); Squamous Epithelial None Seen HPF (0-3); WBC/HPF Greater than 50 HPF (0-3)
[2019-07-11 07:10] LABS: Bacteria/HPF 2+ HPF (None Seen)
[2019-07-11 07:26] LABS: Troponin I 0.225 ng/mL (< 0.028)
--- NOTE | 2019-07-11 07:49 | RAD ---
XR Chest 1 View Portable HISTORY: Altered mental status COMPARISON: 07/07/2019 FINDINGS: The heart size is stable. The lungs are well expanded without focal areas of consolidation, pneumothorax or pleural effusions. IMPRESSION: No radiographic evidence of acute cardiopulmonary process.
--- NOTE | 2019-07-11 08:26 | CT ---
PRELIMINARY REPORT/[facility]/EMERGENCY AFTER HOURS PROCEDURE: EXAM: CT Head Without Contrast EXAM DATE/TIME: 07/11/2019 4:10 AM CLINICAL HISTORY: 73 years old, male; Altered mental status/memory loss; Patient HX: 73 y/o m presents to ED via EMS tr [facility] from tx. [facility] staff called 911 for pt's AMS, though staff unable to identify what is different about pt's current status. TECHNIQUE: Imaging protocol: Computed tomography of the head without contrast. COMPARISON: No relevant prior studies available. FINDINGS: Brain: No acute intracranial hemorrhage or mass effect. There is decreased attenuation in the periventricular white matter, likely from microvascular disease . There are small old lacunar infarcts in the basal ganglia/internal capsule regions bilaterally. No definite acute infarct by CT. MRI could be more sensitive/specific for detection, as clinically di rected. Ventricles: Ventricle size is normal for age. Bones/joints: No definite acute skull fracture. Sinuses: Included paranasal sinuses are essentially clear. Mastoid air cells: No significant acute finding. Vasculature: Vascular calcifications noted in the internal carotid and vertebral basilar systems. IMPRESSION: 1. No acute intracranial hemorrhage or mass effect. 2. Changes of microvascular disease, and small old lacunar infarcts. 3. No definite acute infarct by CT, see above. 4. Other findings discussed above. Thank you for allowing us to participate in the care of your patient. Dictated and Authenticated by: Eduin Mendez MD 07/11/2019 4:36 AM Central Time ([place] & [place]) FINAL REPORT EMERGENT AFTER HOURS CT OF THE BRAIN WITHOUT CONTRAST: FINDINGS/IMPRESSION: I agree with the findings and impression given in the preliminary report per [facility] physician. No walter dence of acute intracranial abnormality. POS: [facility]
--- NOTE | 2019-07-14 03:16 | EKG ---
Test Reason : Blood Pressure : / mmHG Vent. Rate : 102 BPM Atrial Rate : 102 BPM P-R Int : 124 ms QRS Dur : 086 ms QT Int : 364 ms P-R-T Axes : 040 -49 140 degrees QTc Int : 474 ms Sinus tachycardia Possible Left atrial enlargement Left anterior fascicular block Cannot rule out Inferior infarct (masked by fascicular block?) , age undetermined Anterior infarct , age undetermined T wave abnormality, consider lateral ischemia Abnormal ECG Confirmed by JOHANNE SOSA DO ([id number]), publishing editor JUVENAL SUTTON ([id number]) on 07/14/2019 3:15:20 AM Referred By: Confirmed By:JOHANNE SOSA DO
== END 2019-07-11 09:33 | disposition home or self-care (01) ==
LOC: ERS 03:00
DX: N39.0 Urinary tract infection, site not specified (principal); Z79.899 Other long term (current) drug therapy; Z79.82 Long term (current) use of aspirin; Z79.4 Long term (current) use of insulin
CPT/HCPCS: 36415; 51701; 70450; 71045; 80053; 81003; 81015; 82140; 82553; 84484; 85025; 87077; 87086; 93005; 96360; 96361

== ENCOUNTER 2019-07-17 19:37 | Inpatient (IN) | payer MEDICARE, MEDICAID ==
[2019-07-17] MEDS ORDERED: Rocuronium Bromide 10 MG/ML (10ML VIAL) ONE (19:46)
[2019-07-17 20:00] LABS: #Lymphocytes 1.5 thou/uL (1.20-3.40); #Monocytes 0.6 thou/uL (0.11-0.59); #Neutrophils 12.2 thou/uL (1.40-6.50); %Basophils 0.1 % (0.0-1.0); %Lymphocytes 10.2 % (21.0-51.0); %Monocytes 4.1 % (0.0-10.0); %Neutrophils 85.6 % (42.0-75.0); Hemoglobin 9.8 g/dL (14.0-18.0); Mean Corpuscular HGB CONC 31.4 g/dL (32.0-36.0); Mean Corpuscular Volume 92.4 fL (78.0-98.0); Mean Platelet Volume 10.2 fL (7.4-10.4); Platelet Count 262 thou/uL (130-400); RBC Distribution Width 14.7 % (11.5-14.5); Red Blood Cell (RBC) Count 3.39 mill/uL (4.70-6.10); White Blood Cell (WBC) Count 14.3 thou/uL (4.8-10.8)
[2019-07-17 20:09] LABS: INR-International Normal Ratio 1.3
[2019-07-17 20:10] LABS: PTT 32.9 SEC (22.9-36.1)
--- NOTE | 2019-07-17 20:12 | RAD ---
RADIOGRAPH CHEST 1 VIEW: DATE: 07/17/2019 TIME: 8:04 PM HISTORY: 73-year-old male with dyspnea and altered mental status Status post intubation and "NG tube" COMPARISON: 07/11/2019 FINDINGS: New endotracheal tube distal tip at mid thoracic trachea. Despite history, there is no NG tube. No cardiomegaly or pulmonary edema. No pneumothorax. Upper lung zones clear. New mild small hazy density at right base, probably subsegmental atelectasis. New increased density at retrocardiac medial left lower lobe with indistinctness of left hemidiaphrag m. IMPRESSION: 1. Status post intubation with endotracheal tube. 2. Interval development of airspace opacity at left lower lobe. Possibilities include atelectasis, as piration, and pneumonia. 3. Interval development of mild density at right lung base.
[2019-07-17 20:17] LABS: Bilirubin Negative (Negative); Blood, Urine 1+ (Negative); Clarity Turbid (Clear); Glucose, Urine (Dipstick) Greater than 1000 mg/dL (Negative); Leukocyte Negative Leu/uL (Negative); Nitrite Negative (Negative); Protein, Urine (Dipstick) 100 mg/dL (Neg-Trace); RBC/HPF 0-3 HPF (0-3); Squamous Epithelial None Seen HPF (0-3); WBC/HPF 0-3 HPF (0-3)
[2019-07-17] MEDS ORDERED: Piperacillin/Tazobactam 2.25 GM VIAL ONE (20:24)
[2019-07-17 20:27] LABS: Bacteria/HPF None Seen HPF (None Seen)
[2019-07-17 20:29] LABS: ALT (SGPT) 23 U/L (8-55); AST (SGOT) 41 U/L (5-34); Albumin 2.7 g/dL (3.4-4.8); Alkaline Phosphatase 75 U/L (40-150); Anion Gap 11 mmol/L (10-20); BUN (Urea Nitrogen) 78 mg/dL (8.4-25.7); Bilirubin, Total 0.2 mg/dL (0.2-1.2); CK (CPK) 1851 U/L (30-200); Calc. Creatinine Clearance 0 mL/min (70-130); Calcium 8.6 mg/dL (7.8-10.44); Carbon Dioxide 36 mmol/L (23-31); Chloride 111 mmol/L (98-107); Estimated GFR-MDRD 33; Globulin 3.9 g/dL (2.4-3.5); Glucose 369 mg/dL (83-110); Lipase 40 U/L (8-78); Potassium 4.2 mmol/L (3.5-5.1); Protein, Total 6.6 g/dL (5.8-8.1); Sodium 154 mmol/L (136-145)
[2019-07-17 20:43] LABS: CKMB 1.9 ng/mL (0-6.6)
[2019-07-17] MEDS ORDERED: Norepinephrine 8 MG in Dextrose 5% in Water 242 ML IVPB PRN (20:55)
[2019-07-17] MEDS ORDERED: Piperacillin/Tazobactam 4.5 GM in Sodium Chloride 0.9% 100 ML IVPB SCH (21:00)
--- NOTE | 2019-07-17 21:10 | RAD ---
RADIOGRAPH CHEST 1 VIEW: DATE: 07/17/2019 TIME: 8:59 PM HISTORY: 73-year-old male status post central line placement COMPARISON: 07/17/2019 8:04 PM FINDINGS: There is a new left subclavian central venous catheter with distal tip overlying the lower portion of the SVC. There is a new esophagogastric tube with distal tip in the expected location of the proximal-mid body of the stomach. Endotracheal tube remains. There has been interval worsening of aer ation of the right lung base, now with complete silhouetting of the right hemidiaphragm. The same is true of the left lung base with complete silhouetting of left hemidiaphragm. Dense opacification o f retrocardiac left lower lobe. Increased opacification of right lung base. No pneumothorax. No pulmonary edema. No cardiomegaly. IMPRESSION: 1. New esophagogastric tube. 2. New left subclavian central venous catheter placement without pneumothorax. 3. Endotracheal tube remains. 4. Interval worsening of aeration of the bilateral lung bases.
[2019-07-17 21:12] LABS: Actual Bicarbonate (HCO3a) 28.3 mEq/L (22-28); Analyzer IN Cardio ER; CO2 Tension 28.4 mmHg (35.0-45.0); Calcium, Ionized 1.05 mmol/L (1.12-1.30); Carboxyhemoglobin (COHb) 0.3 gm% (0.0-3.0); Hemoglobin (Hb) 9.1 g/dL (14.0-18.0); O2 Tension (PaO2) 157.7 mmHg (> 70.0)
[2019-07-17 21:14] LABS: Puncture Site LRA; pH, Arterial 7.62 (7.35-7.45)
[2019-07-17] MEDS ORDERED: Sodium Chloride 0.9% 1,000 ML IV SCH (22:47)
[2019-07-17] MEDS ORDERED: Ondansetron PF 4 MG/2 ML Vial IVP PRN (22:47)
[2019-07-17] MEDS ORDERED: Ondansetron ODT 4 MG TAB SL PRN (22:47)
--- NOTE | 2019-07-17 23:24 | PDOC.EVN ---
Event Note - Event Note Event Note: H&P dictated [id number]
[2019-07-18] MEDS ORDERED: Dextrose 50% Abboject 50 ML SYRINGE IVP PRN (00:39)
[2019-07-18] MEDS ORDERED: Dextrose 5% in Water 1,000 ML IV PRN (00:39)
[2019-07-18] MEDS: Cefepime 1 GM in Sodium Chloride 0.9% 100 ML IVPB SCH ×2 (01:01→14:19)
[2019-07-18] MEDS: Sodium Chloride 0.9% 1,000 ML IV SCH ×2 (01:01→23:06)
[2019-07-18] MEDS: Insulin Regular 300 UNITS/3 ML VIAL SC PRN ×4 (01:02→22:37)
[2019-07-18] MEDS: metroNIDAZOLE 500 MG in Premix Bag 1 BAG IVPB SCH ×2 (01:48→09:48)
[2019-07-18] MEDS ORDERED: Piperacillin/Tazobactam 4.5 GM in Sodium Chloride 0.9% 100 ML IVPB SCH (06:00)
--- NOTE | 2019-07-18 06:08 | HP ---
CHIEF COMPLAINT: Altered mental status, respiratory distress. HISTORY OF PRESENT ILLNESS: Mr. French is a 73-year-old male with multiple medical problems including congestive heart failure, CVA with right hemiplegia, hypertension, chronic muscle wasting, seizure disorder, diabetes, among others, was brought to the emergency room with respiratory distress and hypotension. The patient was intubated and placed on mechanical ventilator. The patient also was hypotensive, central venous catheter was placed. The patient was started on IV pressors. No further history can be obtained at this time. PAST MEDICAL HISTORY: 1. CVA with right hemiplegia. 2. Bronchitis. 3. Anemia. 4. Hypertension. 5. Chronic muscle wasting. 6. Seizure disorder. 7. Tracheostomy. 8. Diabetes, type 2. PAST SURGICAL HISTORY: Unknown at this time, but the patient had tracheostomy in the past with reversal. ALLERGIES: NO KNOWN ALLERGIES. SOCIAL HISTORY: Unknown. FAMILY HISTORY: Unknown. HOME MEDICATIONS: Please see home medication reconciliation form for previous medications. REVIEW OF SYSTEMS: Cannot be obtained. The patient is intubated on the ventilator. PHYSICAL EXAMINATION: VITAL SIGNS: Current blood pressure is 150/80, heart rate is 115, oxygen saturation is 98%, respiratory rate is 20. HEAD AND NECK: Head normocephalic. Neck is supple. CHEST: Coarse bilateral breath sounds. HEART: S1 and S2 regular, tachycardic. ABDOMEN: Soft, nontender. Bowel sounds present. NEUROLOGIC: The patient is sedated, intubated. PSYCHIATRIC: Unable to assess. SKIN: Decubitus sacral ulcer, ulcers of the heel. LABORATORY DATA: WBC count 14.3, hemoglobin 7.3, platelets . Sodium 154, potassium 4.2, chloride 111, BUN is 78, creatinine 2.3, . Troponin 0.1. BNP 336. Urinalysis showed more than 1000 glucose. Chest x-ray showed worsening aeration of the lower lobes. ASSESSMENT: 1. Acute respiratory failure. 2. Septic shock. 3. Pneumonia, healthcare associated. 4. History of seizure disorder. 5. Diabetes, type 2. PLAN: 1. Admit to intensive care unit. 2. Continue full ventilator support. 3. Continue with IV pressors, titrate to MAP of more than 65. 4. Septic workup including blood cultures done in the ED. 5. IV antibiotics, continue with vancomycin. 6. Start the patient on cefepime and flagyl. 7. Keep the patient n.p.o. 8. Consult Pulmonary/Intensive Care for critical care management. 9. Deep venous thrombosis prophylaxis, low dose Heparin. 10. Gastrointestinal prophylaxis. 11. Reconcile home medications. EXPECTED LENGTH OF STAY: Three midnights or more. Job ID: [id number]
[2019-07-18 07:22] LABS: Actual Bicarbonate (HCO3a) 28.5 mEq/L (22-28); Base Excess (BEa) 4.6 mEq/L (-2.0 to +3.0); CO2 Tension 39.4 mmHg (35.0-45.0); Carboxyhemoglobin (COHb) 1.3 gm% (0.0-3.0); Hemoglobin (Hb) 8.9 g/dL (14.0-18.0); O2 Tension (PaO2) 70.7 mmHg (> 70.0); Potassium - ABG Lab 3.48 mmol/L (3.70-5.30); pH, Arterial 7.48 (7.35-7.45)
[2019-07-18 07:37] LABS: Puncture Site RRA
[2019-07-18] MEDS: Famotidine/PF 20 mg/2ml Vial SLOW IVP SCH (09:48)
[2019-07-18] MEDS: Heparin 5,000 UNITS/ML VIAL SC SCH ×2 (09:59→21:32)
[2019-07-18] MEDS ORDERED: Vancomycin HCl 1 GM in Premix Bag 1 BAG IVPB SCH (15:00)
[2019-07-18] MEDS ORDERED: Vancomycin HCl 1.5 GM in Sodium Chloride 0.9% 250 ML 300 ML IVPB SCH (16:30)
--- NOTE | 2019-07-18 16:30 | PDOC.HOSPP ---
- Subjective Encounter Date: 07/18/19 Encounter Time: 13:00 Subjective: pt intubated - Objective Vital Signs & Weight: Vital Signs (12 hours) Temp Pulse Resp Pulse Ox 07/18/19 16:00 98.5 F 14 07/18/19 14:38 98 07/18/19 14:00 14 07/18/19 12:51 98 07/18/19 12:00 99.9 F H 14 07/18/19 10:37 99 07/18/19 10:00 14 07/18/19 08:00 14 100 07/18/19 07:50 103 H 07/18/19 07:00 100.2 F H 07/18/19 06:00 14 Weight Admit Weight 182 lb Weight 182 lb 1.629 oz Most Recent Monitor Data Heart Rate from ECG 98 NIBP 110/57 NIBP BP-Mean 74 Respiration from ECG 14 SpO2 100 I&O: 07/17/19 07/18/19 07/19/19 06:59 06:59 06:59 Intake Total 828.7 668.9 Output Total 610 355 Balance 218.7 313.9 Result Diagrams: 07/17/19 19:46 07/17/19 19:46 Additional Labs: Accuchecks 07/18/19 07/18/19 07/18/19 12:47 05:31 00:12 POC Glucose 189 H 256 H 277 H Hospitalist ROS - Review of Systems Other: unable to obtain - Medication Medications: Active Medications Generic Name Dose Route Start Last Admin Trade Name Freq PRN Reason Stop Dose Admin Famotidine 20 mg 07/18/19 09:00 07/18/19 09:48 Pepcid SLOW IVP 20 mg DAILY YESSICA Administration Heparin Sodium (Porcine) 5,000 units 07/18/19 09:00 07/18/19 09:59 Heparin SC 5,000 units Q12HR YESSICA Administration Norepinephrine Bitartrate 8 mg 250 mls @ 0 mls/hr 07/17/19 20:55 07/18/19 15: 41 / Dextrose/Water IVPB 250 mls INF PRN Administration TO MAINTAIN MAP > 65 Protocol As Directed Sodium Chloride 1,000 mls @ 50 mls/hr 07/18/19 00:45 07/18/19 01:01 Normal Saline 0.9% IV 1,000 mls .Q20H YESSICA Administration Cefepime HCl 1 gm/ Sodium 100 mls @ 200 mls/hr 07/18/19 01:00 07/18/19 14:19 Chloride IVPB 100 mls 0100,1300 YESSICA Administration Metronidazole 500 mg/ Device 100 mls @ 100 mls/hr 07/18/19 02:00 07/18/19 09: 48 IVPB 100 mls 0200,1000,1800 YESSICA Administration Insulin Human Regular 0 units 07/18/19 00:39 07/18/19 15:01 Humulin R SC 2 units .MODERATE SLIDING SC PRN Administration MODERATE SLIDING SCALE Protocol - Exam ENT: negative: normocephalic atraumatic, no oropharyngeal lesions, moist mucosa , dry oral mucosa Neck: negative: supple, symmetric, no JVD, no thyromegaly, no lymphadenopathy, no carotid bruit, JVD Heart: negative: RRR, no murmur, no gallops, no rubs, normal peripheral pulses, irregular, diminshed peripheral pulses, murmur present, II/IV, III/IV Hosp A/P (1) Acute respiratory failure Code(s): J96.00 - ACUTE RESPIRATORY FAILURE, UNSP W HYPOXIA OR HYPERCAPNIA Status: Acute (2) Bacteremia Code(s): R78.81 - BACTEREMIA Status: Acute (3) Sepsis Code(s): A41.9 - SEPSIS, UNSPECIFIED ORGANISM Status: Acute Plan: septic shock (4) Stroke Code(s): I63.9 - CEREBRAL INFARCTION, UNSPECIFIED Status: Acute - Plan pt's blood cx indicates enterococcus will add vancomycin. palliative consulted. will consult ID. He is still on levophed.
[2019-07-18] MEDS ORDERED: Vancomycin HCl 750 MG in Sodium Chloride 0.9% 250 ML 250 ML IVPB SCH (16:45)
[2019-07-18] MEDS: Ampicillin 2 GM in Sodium Chloride 0.9% 100 ML IVPB SCH (18:12)
[2019-07-18] MEDS: fentaNYL Citrate/PF 2,000 MCG in Sodium Chloride 0.9% 60 ML IV SCH (19:28)
[2019-07-18] MEDS: Linezolid 600 MG in Premix Bag 1 BAG IVPB SCH (21:32)
--- NOTE | 2019-07-18 22:03 | CON ---
Critical care time 35 minutes DATE OF CONSULTATION: HISTORY OF PRESENT ILLNESS: Bobby French is a 73-year-old male. Apparently, I am told he is a resident of a detention. 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 He presented with respiratory distress, subsequently intubated. I was consulted for possible pneumonia. PAST MEDICAL HISTORY: Otherwise remarkable for anemia, hypertension, seizure disorder, history of a tracheostomy, history of diabetes, history of PEG, history of diabetic gastroparesis. I saw him back in June. At that time, he was on aspirin, Catapres, Keppra, losartan, metoprolol, Singulair, Glucerna, and DuoNeb. He presented at that admission with gurgling and tachypnea which led to overnight BiPAP. He was seen by Palliative Care last visit and I had a long discussion with the ex- and the niece about end of life issues, but no one has been really willing to make him a DNR. His ex- says when he got out of rehab, he is actually ambulating short distances and doing quite well. SOCIAL HISTORY: He is a nonsmoker and nondrinker. ALLERGIES: NO DRUG ALLERGIES. REVIEW OF SYSTEMS: Not obtainable. PHYSICAL EXAMINATION: GENERAL: He is intubated. VITAL SIGNS: Heart rate is 98, respiratory rate is in the teens, blood pressure 111/59. HEAD AND NECK: Unremarkable. He has no cervical lymphadenopathy. LUNGS: Remarkable for rhonchi. HEART: Regular rhythm. ABDOMEN: Soft and nontender without guarding. EXTREMITIES: Without asymmetry. LABORATORY DATA: White count 14.3, hemoglobin 9.8, platelets 262. Sodium 154, potassium 4.2, chloride 111, bicarb 36, BUN 78, creatinine 2.34. Creatinine was 1.2 on July 05. IMPRESSION: 1. Severe intravascular volume depletion. 2. Respiratory failure secondary to retained secretions. He has a very unimpressive chest x-ray with maybe some atelectatic changes at his right base. 3. Elevated CPK suggesting he has been in 1 position for a while. 4. Diabetes with a glucose of 369. 5. Acute on chronic kidney disease. 6. Hyperglobulinemia. I doubt he has myeloma. Even if he did, he would not be a candidate for myeloma treatment. We will continue with supportive care. Hopefully within a few days to early next week, he will be weanable. An incidental finding last visit was that he had an ejection fraction of 10% to 15%, but he really does not have much in the way of pulmonary edema on his chest radiograph. We will be happy to follow the other physicians caring for him. His prognosis is quite guarded. Palliative Care needs to be involved as well. Job ID: [id number] MTDD
--- NOTE | 2019-07-18 23:56 | CON ---
DATE OF CONSULTATION: 07/18/2019 REASON FOR CONSULTATION: Bacteremia. HISTORY OF PRESENT ILLNESS: A 73-year-old with history of prior multiple CVAs, seizure disorder, and type 2 diabetes, who is a resident at a [facility] sn[facility] and he is fed through a gastrostomy tube and is admitted this time with progression of respiratory distress and hypotension. On arrival, the patient had to be intubated and admitted to the ICU. He was given sepsis protocol and started on broad- spectrum antimicrobial coverage and now I have one set out of two positive for Enterococcus. The patient is not able to interact with examiner. I discussed his progress with the snf nurse, who takes care and is familiar with him and she noticed that he was having tachypnea and had a low-grade temp elevation, but had not noticed any evidence of aspiration or urinary issues. No diarrhea. In the snf, he voids spontaneously. He is incontinent. Since admission, he has had a T-max of 100.6, seems to be defervescing since admission. His BP has recovered, but intermittently becomes hypotensive again and he is still requiring vasopressors. PAST MEDICAL HISTORY: Prior CVAs; hypertension; cardiomyopathy with decreased ejection fraction, although I do not have a previous echocardiogram in the hospital record; gastrostomy tube feedings; type 2 diabetes; and previous tracheostomy. PAST SURGICAL HISTORY: As above including reversal of tracheostomy. SOCIAL HISTORY: He is a resident at [facility]. Other elements of his social history are not known at this time. ALLERGY HISTORY: Not known of any allergy history. CURRENT MEDICATIONS: 1. Cefepime. 2. Fentanyl. 3. Glucagon. 4. Flagyl. 5. Vancomycin. PHYSICAL EXAMINATION: VITAL SIGNS: T-max 100.6, currently 98.5; blood pressure 90/50; pulse 112; respirations 14; and O2 saturation 100%. SKIN: With a stage 2 pressure ulceration in the pelvic area, presacral region and he has an unstageable deep tissue injury in the right heel area. The patient has a gastrostomy tube in place, exit site with a little bit of exudate but no purulence. No induration. The patient has a central line catheter in the left subclavian location. The endotracheal tube is in place. HEENT: He does not establish eye contact. Temporal wasting noted. Ocular movements are conjugate. Sclerae white. Oral cavity with still few remaining teeth. NECK: Stiff to all directions. LUNGS: With diminished breath sounds in the left side. HEART: Diminished heart sounds, S1 and S2 with regular rate. ABDOMEN: Soft, not distended. Bowel sounds are diminished. : Mendez catheter in place, and I's and O's have been slightly positive, 200 to 300. Urine output 600 over the past 24 hours. EXTREMITIES: Could not test his mobility. LABORATORY DATA: White cell count 14.3, hemoglobin 9.8, platelets 262 with 85% neutrophils. Creatinine is 2.34. We have a previous creatinine at the end of June, which was 1.26 and liver profile with AST 41. CK was 1800. Albumin 2.7. The patient had a recent admission at the end of June because of CHF exacerbation and that is when the echocardiogram was done, which demonstrated ejection fraction of 10% to 15%, [place] mitral regurgitation, moderate circumferential pericardial effusion, and large pleural effusion. ASSESSMENT: 1. Likely ischemic cardiomyopathy with moderate pericardial effusion detected at the end of June. 2. Large pleural effusion detected in June as well. 3. Dyspnea with hypotension. 4. Enterococcus species bacteremia, pending full identification of the organism. 5. Previous multiple cerebrovascular accidents. 6. Gastrostomy feedings. DISCUSSION: The differential diagnosis includes Enterococcus faecalis versus Enterococcus faecium, possibly VRE-associated bacteremia. The origin of this bacteremia is not clear at this time. If the second set becomes positive, then the possibility of endocarditis needs to be considered. Otherwise, it would be either an intraabdominal source, for example urinary tract or gastrointestinal. He does have moderate pericardial effusion that needs to be followed up with repeat echocardiogram. In that regard, may need a pericardiocentesis and consultation with CV Surgery depending on findings. The repeat chest x-ray shows worsening aeration of lungs, which is probably related to effusions plus some element of edema. He does have quite advanced heart disease. Prognosis is certainly conditioned by the irreversibility of this process plus his underlying functional limitations due to prior CVAs. Consideration for palliative care needs to be given. We will switch him to oral antimicrobial therapy appropriate for the organism retrieved for the time being with Zyvox and ampicillin. Job ID: [id number] [facility]
[2019-07-19] MEDS: Ampicillin 2 GM in Sodium Chloride 0.9% 100 ML IVPB SCH ×4 (00:11→17:06)
[2019-07-19] MEDS: Linezolid 600 MG in Premix Bag 1 BAG IVPB SCH ×2 (08:44→20:57)
[2019-07-19] MEDS: Heparin 5,000 UNITS/ML VIAL SC SCH ×2 (08:47→20:56)
[2019-07-19] MEDS: Famotidine/PF 20 mg/2ml Vial SLOW IVP SCH (08:47)
[2019-07-19 09:27] LABS: Actual Bicarbonate (HCO3a) 30.3 mEq/L (22-28); Base Excess (BEa) 5.8 mEq/L (-2.0 to +3.0); CO2 Tension 44.4 mmHg (35.0-45.0); Calcium, Ionized 1.09 mmol/L (1.12-1.30); Hemoglobin (Hb) 8.8 g/dL (14.0-18.0); O2 Tension (PaO2) 65.9 mmHg (> 70.0); pH, Arterial 7.45 (7.35-7.45)
[2019-07-19 09:30] LABS: Puncture Site RRA
[2019-07-19 09:36] LABS: #Eosinphils 0.1 thou/uL (0.0-0.7); #Lymphocytes 1.1 thou/uL (1.20-3.40); #Monocytes 0.5 thou/uL (0.11-0.59); #Neutrophils 5.3 thou/uL (1.40-6.50); %Basophils 0.5 % (0.0-1.0); %Eosinophils 1.2 % (0.0-10.0); %Monocytes 6.9 % (0.0-10.0); %Neutrophils 75.3 % (42.0-75.0); Hemoglobin 8.4 g/dL (14.0-18.0); Mean Corpuscular HGB CONC 31.5 g/dL (32.0-36.0); Mean Corpuscular Hemoglobin 29.3 pg (27.0-31.0); Mean Platelet Volume 10.4 fL (7.4-10.4); Platelet Count 229 thou/uL (130-400); RBC Distribution Width 14.6 % (11.5-14.5); Red Blood Cell (RBC) Count 2.87 mill/uL (4.70-6.10); White Blood Cell (WBC) Count 7.1 thou/uL (4.8-10.8)
[2019-07-19 09:48] LABS: Anion Gap 11 mmol/L (10-20); BUN (Urea Nitrogen) 55 mg/dL (8.4-25.7); Calc. Creatinine Clearance 38 mL/min (70-130); Calcium 8.1 mg/dL (7.8-10.44); Carbon Dioxide 31 mmol/L (23-31); Chloride 120 mmol/L (98-107); Estimated GFR-MDRD 38; Glucose 108 mg/dL (83-110); Potassium 3.5 mmol/L (3.5-5.1); Sodium 158 mmol/L (136-145)
--- NOTE | 2019-07-19 10:01 | PRG ---
DATE OF SERVICE: 07/19/2019 TIME SPENT: 35 minutes of critical care time. SUBJECTIVE: This patient remains intubated on mechanical ventilation. He is weaned off the Levophed a little earlier this morning. He does not follow any commands for me. I would try spontaneous breathing trial, but he had very poor tidal volumes. OBJECTIVE: VITAL SIGNS: On exam, his temperature is 99.1 with a T-max of 100.2, pulse 96, blood pressure 89/47. A 24-hour intake 2005, output 1075. Weight 182 pounds. GENERAL: He is awake on mechanical ventilation and will not follow commands specifically. HEENT: Unremarkable except for endotracheal tube and orogastric tube in place. NECK: No adenopathy or JVD. LUNGS: Coarse breath sounds. CARDIAC: S1 and S2. Regular. ABDOMEN: PEG tube noted. EXTREMITIES: No clubbing, cyanosis, or edema. LABORATORY DATA: I do not see labs or blood gas that was done today and no x-ray that was done today. ASSESSMENT: 1. Septic shock. 2. Acute respiratory failure requiring mechanical ventilation. 3. Intravascular volume depletion. 4. Cardiomyopathy. 5. History of diabetes. PLAN: I do not think he is weanable at this time. I will go ahead and get some labs checked to see where we are. He will continue on the broad-spectrum IV antibiotics and hopefully we will have to restart the Levophed. Job ID: [id number]
[2019-07-19] MEDS: Insulin Regular 300 UNITS/3 ML VIAL SC PRN (12:26)
[2019-07-19] MEDS: Sodium Chloride 0.9% 1,000 ML IV SCH (12:33)
--- NOTE | 2019-07-19 13:52 | PRG ---
DATE OF SERVICE: 07/19/2019 SUBJECTIVE: Mr. French is intubated in the ICU. He is sedated, gets agitated whenever sedation is withdrawn. OBJECTIVE: VITAL SIGNS: His temperature curve seems to be on a downward trend, it is now 98.6, blood pressure 106/63, pulse 92, O2 saturation is 100 with FiO2 of 30. HEENT: He has oral tracheal intubated. LUNGS: Somewhat coarse breath sounds. HEART: S1 and S2. Regular rate. ABDOMEN: Soft. EXTREMITIES: He has stiffness in all 4 extremities with some contractures. LABORATORY DATA: White cell count 7.1, hemoglobin 8.4, platelets 229 with 75% neutrophils and creatinine is at 2.09, GFR 38. Microbiology with presumptive Enterococcus species with pending final identification. ASSESSMENT AND DISCUSSION: Ischemic cardiomyopathy, moderate pericardial effusion, large pleural effusion, dyspnea, hypotension, Enterococcus species bacteremia, one out of two sets with pending full identification organism, previous multiple cerebrovascular accidents and functional impairment. The patient is still on Zyvox and ampicillin until final identification of the organism and pending echocardiogram to see the progress of that pericardial effusion. He may need a pericardiocentesis and thoracentesis or if Palliative Care is opted, referral to hospice will be another viable option in view of his irreversible chronic functional impairment. Job ID: [id number]
--- NOTE | 2019-07-19 16:20 | PDOC.HOSPP ---
- Subjective Encounter Date: 07/19/19 Encounter Time: 11:00 Subjective: pt intubated - Objective Vital Signs & Weight: Vital Signs (12 hours) Temp Pulse Resp BP Pulse Ox 07/19/19 14:31 88 99/49 L 07/19/19 14:00 14 07/19/19 12:00 98.6 F 14 07/19/19 10:55 93 118/60 07/19/19 10:00 14 07/19/19 08:00 98.9 F 14 100 07/19/19 07:04 95 116/72 07/19/19 06:00 14 Weight Admit Weight 182 lb Weight 182 lb 1.629 oz Most Recent Monitor Data Heart Rate from ECG 90 NIBP 103/63 NIBP BP-Mean 76 Respiration from ECG 14 SpO2 100 I&O: 07/18/19 07/19/19 07/20/19 06:59 06:59 06:59 Intake Total 828.7 2006.0 100 Output Total 610 1075 330 Balance 218.7 931.0 -230 Result Diagrams: 07/19/19 09:08 07/19/19 09:08 Additional Labs: Accuchecks 07/19/19 07/19/19 07/18/19 12:27 04:13 22:34 POC Glucose 150 H 117 H 206 H 07/18/19 18:23 POC Glucose 181 H Hospitalist ROS - Review of Systems Respiratory: denies: cough, dry, shortness of breath, hemoptysis, SOB with excertion, pleuritic pain, sputum, wheezing, other Cardiovascular: denies: chest pain, palpitations, orthopnea, paroxysmal noc. dyspnea, edema, light headedness, other Gastrointestinal: denies: nausea, vomiting, abdominal pain, diarrhea, constipation, melena, hematochezia, other - Medication Medications: Active Medications Generic Name Dose Route Start Last Admin Trade Name Freq PRN Reason Stop Dose Admin Famotidine 20 mg 07/18/19 09:00 07/19/19 08:47 Pepcid SLOW IVP 20 mg DAILY YESSICA Administration Heparin Sodium (Porcine) 5,000 units 07/18/19 09:00 07/19/19 08:47 Heparin SC 5,000 units Q12HR YESSICA Administration Norepinephrine Bitartrate 8 mg 250 mls @ 0 mls/hr 07/17/19 20:55 07/18/19 15: 41 / Dextrose/Water IVPB 250 mls INF PRN Administration TO MAINTAIN MAP > 65 Protocol As Directed Fentanyl Citrate 2,000 mcg/ 100 mls @ 0 mls/hr 07/17/19 21:09 07/18/19 19:28 Sodium Chloride IV 08/16/19 21:09 100 mls INF YESSICA Administration Protocol Per Protocol Sodium Chloride 1,000 mls @ 50 mls/hr 07/18/19 00:45 07/19/19 12:33 Normal Saline 0.9% IV 1,000 mls .Q20H YESSICA Administration Ampicillin Sodium 2 gm/ Sodium 100 mls @ 200 mls/hr 07/18/19 18:00 07/19/19 11:31 Chloride IVPB 100 mls Q6HR YESSICA Administration Linezolid 600 mg/ Device 300 mls @ 150 mls/hr 07/18/19 21:00 07/19/19 08:44 IVPB 300 mls Q12HR YESSICA Administration Insulin Human Regular 0 units 07/18/19 00:39 07/19/19 12:26 Humulin R SC 2 units .MODERATE SLIDING SC PRN Administration MODERATE SLIDING SCALE Protocol - Exam Eye - other findings: he is awake but does not follow command Neck: negative: supple, symmetric, no JVD, no thyromegaly, no lymphadenopathy, no carotid bruit, JVD Heart: negative: RRR, no murmur, no gallops, no rubs, normal peripheral pulses, irregular, diminshed peripheral pulses, murmur present, II/IV, III/IV Respiratory: negative: CTAB, no wheezes, no rales, no ronchi, normal chest expansion, no tachypnea, normal percussion, rales, rhonchi, tachypneic, wheezes Hosp A/P (1) Acute respiratory failure Code(s): J96.00 - ACUTE RESPIRATORY FAILURE, UNSP W HYPOXIA OR HYPERCAPNIA Status: Acute (2) Bacteremia Code(s): R78.81 - BACTEREMIA Status: Acute (3) Sepsis Code(s): A41.9 - SEPSIS, UNSPECIFIED ORGANISM Status: Acute (4) Stroke Code(s): I63.9 - CEREBRAL INFARCTION, UNSPECIFIED Status: Acute (5) Hypernatremia Code(s): E87.0 - HYPEROSMOLALITY AND HYPERNATREMIA Status: Acute - Plan pt's blood cx indicates enterococcus will add vancomycin. palliative consulted. will consult ID. He is still on levophed. 07/19 pt is off levophed. will continue abx for now. will add free water for hypernatremia and will check bmp in am.
[2019-07-19] MEDS: levETIRAcetam 500 mg/5 ml Oral Solution PER TUBE SCH (20:56)
[2019-07-19] MEDS: Montelukast Sodium 10 mg Tablet PO SCH (20:58)
[2019-07-20] MEDS: Insulin Regular 300 UNITS/3 ML VIAL SC PRN ×3 (00:23→23:08)
[2019-07-20] MEDS: Ampicillin 2 GM in Sodium Chloride 0.9% 100 ML IVPB SCH ×5 (00:39→23:03)
[2019-07-20] MEDS: fentaNYL Citrate/PF 2,000 MCG in Sodium Chloride 0.9% 60 ML IV SCH (04:06)
[2019-07-20 05:24] LABS: #Eosinphils 0.2 thou/uL (0.0-0.7); #Lymphocytes 0.9 thou/uL (1.20-3.40); #Monocytes 0.3 thou/uL (0.11-0.59); #Neutrophils 3.8 thou/uL (1.40-6.50); %Basophils 0.7 % (0.0-1.0); %Monocytes 5.3 % (0.0-10.0); %Neutrophils 73.1 % (42.0-75.0); Hemoglobin 8.3 g/dL (14.0-18.0); Mean Corpuscular HGB CONC 32.5 g/dL (32.0-36.0); Mean Corpuscular Hemoglobin 30.3 pg (27.0-31.0); Mean Corpuscular Volume 93.1 fL (78.0-98.0); Mean Platelet Volume 9.9 fL (7.4-10.4); Platelet Count 233 thou/uL (130-400); RBC Distribution Width 14.3 % (11.5-14.5); Red Blood Cell (RBC) Count 2.73 mill/uL (4.70-6.10); White Blood Cell (WBC) Count 5.2 thou/uL (4.8-10.8)
[2019-07-20 05:38] LABS: Anion Gap 9 mmol/L (10-20); BUN (Urea Nitrogen) 50 mg/dL (8.4-25.7); Calc. Creatinine Clearance 41 mL/min (70-130); Calcium 7.8 mg/dL (7.8-10.44); Carbon Dioxide 32 mmol/L (23-31); Chloride 118 mmol/L (98-107); Estimated GFR-MDRD 42; Glucose 91 mg/dL (83-110); Potassium 3.1 mmol/L (3.5-5.1); Sodium 156 mmol/L (136-145)
[2019-07-20] MEDS: Linezolid 600 MG in Premix Bag 1 BAG IVPB SCH ×2 (08:51→20:12)
[2019-07-20] MEDS: Famotidine/PF 20 mg/2ml Vial SLOW IVP SCH (08:55)
[2019-07-20] MEDS: levETIRAcetam 500 mg/5 ml Oral Solution PER TUBE SCH ×2 (08:55→20:12)
[2019-07-20] MEDS: Heparin 5,000 UNITS/ML VIAL SC SCH ×2 (08:58→20:11)
[2019-07-20] MEDS ORDERED: Sodium Chloride 0.9% 1,000 ML IV SCH (09:30)
--- NOTE | 2019-07-20 09:41 | RAD ---
PORTABLE CHEST: Date: 07/20/19 HISTORY: Pneumonia follow-up. COMPARISON: 07/17/19. FINDINGS: ET tube remains in position. Central line is unchanged. NG tube has been removed. Left basilar opacification obscures the left hemidiaphragm. This is a poor inspiratory film which chanel its the exam. Mild vascular congestion. IMPRESSION: Left basilar opacification obscures the left hemidiaphragm suggesting atelectasis or consolidation. M ild vascular congestion. POS: OFF
[2019-07-20] MEDS ORDERED: Furosemide 40 MG/4 ML VIAL SLOW IVP SCH (09:45)
--- NOTE | 2019-07-20 10:29 | PRG ---
DATE OF SERVICE: 07/20/2019 INTERVAL HISTORY: The patient is doing really well from respiratory standpoint. He is waking on the mechanical ventilator. He appears to be quite comfortable. He is breathing slowly. He has no chest discomfort and denies having shortness of breath. He says he is getting enough air, albeit through straw. OBJECTIVE: VITAL SIGNS: Afebrile with a T-max of 100 overnight, pulse 95, blood pressure 136/60, respirations 20, and saturation 100%, currently on 30% FiO2 and a PEEP of 5. GENERAL: The patient is awake and alert, in no apparent distress. LUNGS: Very good air entry. Dependent crackles are noted. There are some rhonchi with hard cough, they are clear and purulent. There is a slightly prolonged expiratory phase, but no wheezing. HEART: Normal rate, regular. ABDOMEN: Soft, nontender, nondistended. Bowel sounds are positive. MUSCULOSKELETAL: No cyanosis or clubbing. There is diffuse 2+ pitting throughout. NEUROLOGIC: Grossly nonfocal. LABORATORY DATA: WBC 5.2, hemoglobin 8.3, platelets 233,000. INR 1.3. Creatinine 1.93 and downtrending, BUN 50, sodium 156, potassium 3.1. Urinalysis is essentially unremarkable. Blood culture is growing Enterococcus faecalis in 1/2. It is actually a pansensitive organism. Urine culture is negative otherwise. IMAGING DATA: Chest x-ray demonstrates cardiomegaly. Endotracheal tube is roughly 2 to 3 cm above the level of the misty. There is no infiltrate in the right lung. There is likely a retrocardiac infiltrate on the left. Left subclavian central venous catheter terminates in good position. Echocardiogram demonstrates reduced ejection fraction 30% to 40%, moderate circumferential pericardial effusion. We do not mention whether or not tamponade physiology is present. ASSESSMENT: 1. Septic shock, resolving. 2. Bacteremia secondary to Enterococcus faecalis, pansensitive. 3. Acute hypoxic respiratory failure, resolving. 4. Mbutv-br-rvwqtph systolic heart failure. 5. Hypokalemia. 6. Hypernatremia. DISCUSSION AND PLAN: We will continue our aggressive free water repletion. He is currently volume up. As such, the salt water will be interrupted altogether. Potassium will be replaced cautiously. I will introduce a small dose of Lasix, now that he has cleared his inflammatory profile. We will begin our mobilization efforts. Hopefully in 24 to 48 hours, we will be able to give him a good spontaneous breathing trial and consider liberating him from mechanical ventilation. CRITICAL CARE TIME: 30 minutes. Job ID: [id number] MTDD
[2019-07-20] MEDS: Dextrose 5% in Water 1,000 ML IV SCH (12:45)
--- NOTE | 2019-07-20 15:05 | PDOC.HOSPP ---
- Subjective Encounter Date: 07/20/19 Encounter Time: 11:00 Subjective: pt up in bed awake but intubated - Objective Vital Signs & Weight: Vital Signs (12 hours) Temp Pulse Resp BP 07/20/19 14:00 18 07/20/19 13:09 90 127/62 07/20/19 12:00 98.8 F 14 07/20/19 10:43 100 131/72 07/20/19 10:00 12 07/20/19 08:00 99.8 F H 18 07/20/19 07:48 95 111/58 L 07/20/19 06:00 16 07/20/19 04:00 100.0 F H Weight Admit Weight 182 lb Weight 182 lb 1.629 oz Most Recent Monitor Data Heart Rate from ECG 90 NIBP 139/67 NIBP BP-Mean 91 Respiration from ECG 13 SpO2 96 I&O: 07/19/19 07/20/19 07/21/19 06:59 06:59 06:59 Intake Total 2006.0 4921 360 Output Total 1075 1300 1005 Balance 931.0 3621 -645 Result Diagrams: 07/20/19 04:50 07/20/19 04:50 Additional Labs: Accuchecks 07/20/19 07/20/19 07/20/19 12:52 06:13 00:24 POC Glucose 164 H 110 174 H 07/19/19 17:33 POC Glucose 116 H Hospitalist ROS - Review of Systems Other: unable to obtain - Medication Medications: Active Medications Generic Name Dose Route Start Last Admin Trade Name Freq PRN Reason Stop Dose Admin Famotidine 20 mg 07/18/19 09:00 07/20/19 08:55 Pepcid SLOW IVP 20 mg DAILY YESSICA Administration Heparin Sodium (Porcine) 5,000 units 07/18/19 09:00 07/20/19 08:58 Heparin SC 5,000 units Q12HR YESSICA Administration Norepinephrine Bitartrate 8 mg 250 mls @ 0 mls/hr 07/17/19 20:55 07/18/19 15: 41 / Dextrose/Water IVPB 250 mls INF PRN Administration TO MAINTAIN MAP > 65 Protocol As Directed Fentanyl Citrate 2,000 mcg/ 100 mls @ 0 mls/hr 07/17/19 21:09 07/20/19 04:06 Sodium Chloride IV 08/16/19 21:09 100 mls INF YESSICA Administration Protocol Per Protocol Ampicillin Sodium 2 gm/ Sodium 100 mls @ 200 mls/hr 07/18/19 18:00 07/20/19 12:43 Chloride IVPB 100 mls Q6HR YESSICA Administration Linezolid 600 mg/ Device 300 mls @ 150 mls/hr 07/18/19 21:00 07/20/19 08:51 IVPB 300 mls Q12HR YESSICA Administration Dextrose/Water 1,000 mls @ 50 mls/hr 07/20/19 09:45 07/20/19 12:45 D5w IV 1,000 mls .Q20H YESSICA Administration Insulin Human Regular 0 units 07/18/19 00:39 07/20/19 13:02 Humulin R SC 2 units .MODERATE SLIDING SC PRN Administration MODERATE SLIDING SCALE Protocol Levetiracetam 1,000 mg 07/19/19 21:00 07/20/19 08:55 Keppra Oral Solution PER TUBE 1,000 mg BID YESSICA Administration Montelukast Sodium 10 mg 07/19/19 21:00 07/19/19 20:58 Singulair PO 10 mg QPM YESSICA Administration Potassium Chloride 20 meq 07/20/19 13:00 07/20/19 12:43 Klor-Con PO 07/20/19 21:01 20 meq Q4HR YESSICA Administration - Exam ENT: negative: normocephalic atraumatic, no oropharyngeal lesions, moist mucosa , dry oral mucosa Neck: negative: supple, symmetric, no JVD, no thyromegaly, no lymphadenopathy, no carotid bruit, JVD Heart: negative: RRR, no murmur, no gallops, no rubs, normal peripheral pulses, irregular, diminshed peripheral pulses, murmur present, II/IV, III/IV Respiratory: negative: CTAB, no wheezes, no rales, no ronchi, normal chest expansion, no tachypnea, normal percussion, rales, rhonchi, tachypneic, wheezes Hosp A/P (1) Acute respiratory failure Code(s): J96.00 - ACUTE RESPIRATORY FAILURE, UNSP W HYPOXIA OR HYPERCAPNIA Status: Acute (2) Bacteremia Code(s): R78.81 - BACTEREMIA Status: Acute (3) Sepsis Code(s): A41.9 - SEPSIS, UNSPECIFIED ORGANISM Status: Acute (4) Stroke Code(s): I63.9 - CEREBRAL INFARCTION, UNSPECIFIED Status: Acute (5) Hypernatremia Code(s): E87.0 - HYPEROSMOLALITY AND HYPERNATREMIA Status: Acute - Plan pt's blood cx indicates enterococcus will add vancomycin. palliative consulted. will consult ID. He is still on levophed. 07/19 pt is off levophed. will continue abx for now. will add free water for hypernatremia and will check bmp in am. 07/20 hypernatremia managed by pulmonary, will continue abx for now. pt received lasix today. will update family.
--- NOTE | 2019-07-20 15:27 | EKG ---
Test Reason : Blood Pressure : / mmHG Vent. Rate : 110 BPM Atrial Rate : 110 BPM P-R Int : 228 ms QRS Dur : 076 ms QT Int : 348 ms P-R-T Axes : -25 -29 159 degrees QTc Int : 470 ms Sinus tachycardia with 1st degree A-V block T wave abnormality, consider anterolateral ischemia Abnormal ECG Confirmed by NATHALY ROBLES, DIONNA ([id number]), publication editor ALON JALLOH ([id number]) on 07/20/2019 3:27:17 PM Referred By: Confirmed By:DIONNA ANDERSEN MD
[2019-07-20] MEDS: Montelukast Sodium 10 mg Tablet PO SCH (20:12)
[2019-07-20] MEDS ORDERED: Ondansetron PF 4 MG/2 ML Vial SLOW IVP PRN (21:57)
[2019-07-21 05:03] LABS: #Eosinphils 0.1 thou/uL (0.0-0.7); #Lymphocytes 0.9 thou/uL (1.20-3.40); #Monocytes 0.3 thou/uL (0.11-0.59); %Eosinophils 2.8 % (0.0-10.0); %Lymphocytes 21.1 % (21.0-51.0); %Monocytes 7.1 % (0.0-10.0); Hemoglobin 8.5 g/dL (14.0-18.0); Mean Corpuscular HGB CONC 31.7 g/dL (32.0-36.0); Mean Corpuscular Hemoglobin 29.6 pg (27.0-31.0); Mean Corpuscular Volume 93.5 fL (78.0-98.0); Mean Platelet Volume 9.4 fL (7.4-10.4); Platelet Count 254 thou/uL (130-400); RBC Distribution Width 14.1 % (11.5-14.5); Red Blood Cell (RBC) Count 2.87 mill/uL (4.70-6.10); White Blood Cell (WBC) Count 4.4 thou/uL (4.8-10.8)
[2019-07-21] MEDS: Ampicillin 2 GM in Sodium Chloride 0.9% 100 ML IVPB SCH ×4 (05:06→23:07)
[2019-07-21 05:23] LABS: Phosphorus 3.8 mg/dL (2.3-4.7)
[2019-07-21 05:25] LABS: Anion Gap 9 mmol/L (10-20); BUN (Urea Nitrogen) 43 mg/dL (8.4-25.7); Calc. Creatinine Clearance 41 mL/min (70-130); Calcium 7.8 mg/dL (7.8-10.44); Carbon Dioxide 32 mmol/L (23-31); Chloride 114 mmol/L (98-107); Estimated GFR-MDRD 42; Glucose 136 mg/dL (83-110); Magnesium 2.4 mg/dL (1.6-2.6); Potassium 3.6 mmol/L (3.5-5.1); Sodium 151 mmol/L (136-145)
[2019-07-21] MEDS: Linezolid 600 MG in Premix Bag 1 BAG IVPB SCH ×2 (08:48→20:06)
[2019-07-21] MEDS: levETIRAcetam 500 mg/5 ml Oral Solution PER TUBE SCH ×2 (08:49→20:06)
[2019-07-21] MEDS: Heparin 5,000 UNITS/ML VIAL SC SCH ×2 (08:49→20:06)
[2019-07-21] MEDS: Famotidine/PF 20 mg/2ml Vial SLOW IVP SCH (08:50)
[2019-07-21] MEDS: Dextrose 5% in Water 1,000 ML IV SCH ×2 (09:04→14:07)
[2019-07-21] MEDS ORDERED: Furosemide 40 MG/4 ML VIAL SLOW IVP SCH ×2 (12:15→18:00)
--- NOTE | 2019-07-21 12:54 | PRG ---
DATE OF SERVICE: 07/21/2019 SERVICE: Pulmonary Medicine. INTERVAL HISTORY: The patient is doing poorly from a Respiratory standpoint. He has significant secretions. We put him on a CPAP trial, and his volumes were absolutely horrendous. He is demonstrating very significant central sleep apnea pattern of breathing. As such, it has caused people to increase the oxygen as time has gone on, which has made his underlying central apnea worse. What is interesting is that the patient is wide awake with this pattern of breathing. PHYSICAL EXAMINATION: VITAL SIGNS: Afebrile, pulse 95, blood pressure 105/56, respirations 16, saturation 98% on 23% FiO2 and a PEEP of 5. GENERAL: The patient is intubated. He is under the influence of no sedation. He remains a little somnolent. HEENT: Normocephalic and atraumatic. Sclerae white. Conjunctivae pink. Oral mucosa is moist without lesions. LUNGS: Decent air entry. No prolonged expiratory phase or wheezing is appreciated. Dependent crackles are noted. HEART: Normal rate and regular. ABDOMEN: Soft, nontender, nondistended. Bowel sounds are positive. MUSCULOSKELETAL: No cyanosis or clubbing. There is 1+ pitting throughout. NEUROLOGIC: Nonfocal. LABORATORY DATA: WBC 4.4, hemoglobin 8.5, platelets 254,000. INR 1.3. Creatinine 1.92, which is stable. BUN 43, anion gap 9, bicarb 32, sodium 151 and downtrending nicely. Magnesium and phosphorous fall within the normal limits. Blood culture is growing Enterococcus faecalis in one out of two. Urine cultures negative to date. ASSESSMENT: 1. Septic shock, resolving. 2. Bacteremia secondary to Enterococcus faecalis, pansensitive. 3. Acute hypoxic respiratory failure, resolving. 4. Acute on chronic systolic heart failure. 5. Hypokalemia, resolved. 6. Hypernatremia, improving. DISCUSSION AND PLAN: We will continue our free water to get the patient closer to euvolemia. I will give him a small dose of potassium. Palliative Care consultation will be performed. Because of the patient's poor performance on his spontaneous breathing trial and lack of strength, I am going to leave the patient on mechanical ventilation for an additional day. Of note, he is having significant central events while awake. I am curious to see whether or not this will improve as we correct his electrolyte abnormalities. CRITICAL CARE TIME: 30 minutes. Job ID: [id number]
[2019-07-21] MEDS: Insulin Regular 300 UNITS/3 ML VIAL SC PRN ×2 (14:13→18:08)
--- NOTE | 2019-07-21 15:49 | PDOC.HOSPP ---
- Subjective Encounter Date: 07/21/19 Encounter Time: 10:00 Subjective: pt intubated - Objective Vital Signs & Weight: Vital Signs (12 hours) Temp Pulse Resp BP Pulse Ox 07/21/19 15:17 91 107/71 07/21/19 14:00 15 07/21/19 13:15 90 108/61 07/21/19 12:00 14 07/21/19 11:10 95 112/60 07/21/19 11:00 98.8 F 07/21/19 10:00 16 07/21/19 09:01 95 106/54 L 07/21/19 08:00 18 97 07/21/19 07:00 98.6 F 07/21/19 06:07 94 108/58 L 07/21/19 06:00 11 L 07/21/19 04:00 17 Weight Admit Weight 182 lb Weight 182 lb 1.629 oz Most Recent Monitor Data Heart Rate from ECG 92 NIBP 114/68 NIBP BP-Mean 83 Respiration from ECG 17 SpO2 99 I&O: 07/20/19 07/21/19 07/22/19 06:59 06:59 06:59 Intake Total 4921 3303.7 635 Output Total 1300 2050 325 Balance 3621 1253.7 310 Result Diagrams: 07/21/19 04:42 07/21/19 04:42 Additional Labs: Accuchecks 07/21/19 07/20/19 07/20/19 12:37 23:09 16:03 POC Glucose 176 H 167 H 149 H Hospitalist ROS - Review of Systems Other: unable to obtain - Medication Medications: Active Medications Generic Name Dose Route Start Last Admin Trade Name Jessie PRN Reason Stop Dose Admin Famotidine 20 mg 07/18/19 09:00 07/21/19 08:50 Pepcid SLOW IVP 20 mg DAILY YESSICA Administration Heparin Sodium (Porcine) 5,000 units 07/18/19 09:00 07/21/19 08:49 Heparin SC 5,000 units Q12HR YESSICA Administration Fentanyl Citrate 2,000 mcg/ 100 mls @ 0 mls/hr 07/17/19 21:09 07/20/19 04:06 Sodium Chloride IV 08/16/19 21:09 100 mls INF YESSICA Administration Protocol Per Protocol Ampicillin Sodium 2 gm/ Sodium 100 mls @ 200 mls/hr 07/18/19 18:00 07/21/19 11:06 Chloride IVPB 100 mls Q6HR YESSICA Administration Linezolid 600 mg/ Device 300 mls @ 150 mls/hr 07/18/19 21:00 07/21/19 08:48 IVPB 300 mls Q12HR YESSICA Administration Dextrose/Water 1,000 mls @ 60 mls/hr 07/21/19 12:16 07/21/19 14:07 D5w IV Not Given .[id number] YESSICA Insulin Human Regular 0 units 07/18/19 00:39 07/21/19 14:13 Humulin R SC 2 units .MODERATE SLIDING SC PRN Administration MODERATE SLIDING SCALE Protocol Levetiracetam 1,000 mg 07/19/19 21:00 07/21/19 08:49 Keppra Oral Solution PER TUBE 1,000 mg BID YESSICA Administration Montelukast Sodium 10 mg 07/19/19 21:00 07/20/19 20:12 Singulair PO 10 mg QPM YESSICA Administration Ondansetron HCl 4 mg 07/20/19 21:57 07/20/19 22:04 Zofran SLOW IVP 4 mg Q6H PRN Administration Nausea/Vomiting - Exam Heart: negative: RRR, no murmur, no gallops, no rubs, normal peripheral pulses, irregular, diminshed peripheral pulses, murmur present, II/IV, III/IV Respiratory: negative: CTAB, no wheezes, no rales, no ronchi, normal chest expansion, no tachypnea, normal percussion, rales, rhonchi, tachypneic, wheezes Hosp A/P (1) Acute respiratory failure Code(s): J96.00 - ACUTE RESPIRATORY FAILURE, UNSP W HYPOXIA OR HYPERCAPNIA Status: Acute (2) Bacteremia Code(s): R78.81 - BACTEREMIA Status: Acute (3) Sepsis Code(s): A41.9 - SEPSIS, UNSPECIFIED ORGANISM Status: Acute (4) Stroke Code(s): I63.9 - CEREBRAL INFARCTION, UNSPECIFIED Status: Acute (5) Hypernatremia Code(s): E87.0 - HYPEROSMOLALITY AND HYPERNATREMIA Status: Acute - Plan pt's blood cx indicates enterococcus will add vancomycin. palliative consulted. will consult ID. He is still on levophed. 07/19 pt is off levophed. will continue abx for now. will add free water for hypernatremia and will check bmp in am. 07/20 hypernatremia managed by pulmonary, will continue abx for now. pt received lasix today. will update family. 07/21 hypernatremia improving, will continue abx. pulmonary managing vent.
[2019-07-21] MEDS: Montelukast Sodium 10 mg Tablet PO SCH (20:06)
[2019-07-22 05:27] LABS: Anion Gap 9 mmol/L (10-20); BUN (Urea Nitrogen) 42 mg/dL (8.4-25.7); Calc. Creatinine Clearance 43 mL/min (70-130); Calcium 7.8 mg/dL (7.8-10.44); Carbon Dioxide 32 mmol/L (23-31); Chloride 110 mmol/L (98-107); Estimated GFR-MDRD 41; Glucose 125 mg/dL (83-110); Potassium 3.4 mmol/L (3.5-5.1); Sodium 148 mmol/L (136-145)
[2019-07-22] MEDS: Ampicillin 2 GM in Sodium Chloride 0.9% 100 ML IVPB SCH ×4 (06:00→23:04)
[2019-07-22] MEDS: Furosemide 40 MG/4 ML VIAL SLOW IVP SCH (09:17)
[2019-07-22] MEDS: Famotidine/PF 20 mg/2ml Vial SLOW IVP SCH (09:17)
[2019-07-22] MEDS: Heparin 5,000 UNITS/ML VIAL SC SCH ×2 (09:17→20:16)
[2019-07-22] MEDS: Dextrose 5% in Water 1,000 ML IV SCH ×2 (09:17→14:40)
[2019-07-22] MEDS: levETIRAcetam 500 mg/5 ml Oral Solution PER TUBE SCH ×2 (09:17→20:16)
[2019-07-22] MEDS: Linezolid 600 MG in Premix Bag 1 BAG IVPB SCH (09:17)
--- NOTE | 2019-07-22 10:39 | RAD ---
CHEST 1 VIEW: Date: 07/22/19 HISTORY: Oxygen desaturation. COMPARISON: 07/20/19. FINDINGS/IMPRESSION: Left central line and endotracheal tubes in position. Poor inspiratory with borderline heart size and bilateral vascular congestion and increased markings bilaterally. Overall stable from prior study. N o significant new process. POS: [facility]
--- NOTE | 2019-07-22 13:38 | PDOC.HOSPP ---
- Subjective Encounter Date: 07/22/19 Encounter Time: 10:30 Subjective: pt intubated - Objective Vital Signs & Weight: Vital Signs (12 hours) Temp Pulse Resp BP Pulse Ox 07/22/19 12:00 98.5 F 33 H 07/22/19 11:10 100 106/58 L 07/22/19 10:00 23 H 07/22/19 08:00 98.9 F 25 H 95 07/22/19 07:09 100 98/52 L 07/22/19 06:00 18 07/22/19 04:21 95 07/22/19 04:00 99.2 F 20 97 07/22/19 02:00 16 Weight Admit Weight 182 lb Weight 193 lb 5.526 oz Most Recent Monitor Data Heart Rate from ECG 98 NIBP 122/73 NIBP BP-Mean 89 Respiration from ECG 10 SpO2 100 I&O: 07/21/19 07/22/19 07/23/19 06:59 06:59 06:59 Intake Total 3303.7 3458 400 Output Total 2050 1630 760 Balance 1253.7 1828 -360 Result Diagrams: 07/21/19 04:42 07/22/19 04:54 Additional Labs: Accuchecks 07/22/19 07/22/19 07/21/19 04:57 00:14 17:38 POC Glucose 137 H 128 H 156 H Hospitalist ROS - Review of Systems Other: unable to obtain - Medication Medications: Active Medications Generic Name Dose Route Start Last Admin Trade Name Jessie PRN Reason Stop Dose Admin Famotidine 20 mg 07/18/19 09:00 07/22/19 09:17 Pepcid SLOW IVP 20 mg DAILY YESSICA Administration Furosemide 40 mg 07/22/19 09:00 07/22/19 09:17 Lasix SLOW IVP 40 mg DAILY YESSICA Administration Heparin Sodium (Porcine) 5,000 units 07/18/19 09:00 07/22/19 09:17 Heparin SC 5,000 units Q12HR YESSICA Administration Fentanyl Citrate 2,000 mcg/ 100 mls @ 0 mls/hr 07/17/19 21:09 07/20/19 04:06 Sodium Chloride IV 08/16/19 21:09 100 mls INF YESSICA Administration Protocol Per Protocol Ampicillin Sodium 2 gm/ Sodium 100 mls @ 200 mls/hr 07/18/19 18:00 07/22/19 12:32 Chloride IVPB 100 mls Q6HR YESSICA Administration Dextrose/Water 1,000 mls @ 60 mls/hr 07/21/19 12:16 07/22/19 09:17 D5w IV Not Given .[id number] YESSICA Insulin Human Regular 0 units 07/18/19 00:39 07/21/19 18:08 Humulin R SC 2 units .MODERATE SLIDING SC PRN Administration MODERATE SLIDING SCALE Protocol Levetiracetam 1,000 mg 07/19/19 21:00 07/22/19 09:17 Keppra Oral Solution PER TUBE 1,000 mg BID YESSICA Administration Montelukast Sodium 10 mg 07/19/19 21:00 07/21/19 20:06 Singulair PO 10 mg QPM YESSICA Administration Ondansetron HCl 4 mg 07/20/19 21:57 07/20/19 22:04 Zofran SLOW IVP 4 mg Q6H PRN Administration Nausea/Vomiting - Exam Neck: negative: supple, symmetric, no JVD, no thyromegaly, no lymphadenopathy, no carotid bruit, JVD Heart: negative: RRR, no murmur, no gallops, no rubs, normal peripheral pulses, irregular, diminshed peripheral pulses, murmur present, II/IV, III/IV Respiratory: negative: CTAB, no wheezes, no rales, no ronchi, normal chest expansion, no tachypnea, normal percussion, rales, rhonchi, tachypneic, wheezes Gastrointestinal: negative: soft, non-tender, non-distended, normal bowel sounds , no palpable masses, no hepatomegaly, no splenomegaly, no bruit, no guarding, no rigidity, tender to palpation, distended, diminished bowl sounds, voluntary guarding Hosp A/P (1) Acute respiratory failure Code(s): J96.00 - ACUTE RESPIRATORY FAILURE, UNSP W HYPOXIA OR HYPERCAPNIA Status: Acute (2) Bacteremia Code(s): R78.81 - BACTEREMIA Status: Acute (3) Sepsis Code(s): A41.9 - SEPSIS, UNSPECIFIED ORGANISM Status: Acute (4) Stroke Code(s): I63.9 - CEREBRAL INFARCTION, UNSPECIFIED Status: Acute (5) Hypernatremia Code(s): E87.0 - HYPEROSMOLALITY AND HYPERNATREMIA Status: Acute - Plan pt's blood cx indicates enterococcus will add vancomycin. palliative consulted. will consult ID. He is still on levophed. 07/19 pt is off levophed. will continue abx for now. will add free water for hypernatremia and will check bmp in am. 07/20 hypernatremia managed by pulmonary, will continue abx for now. pt received lasix today. will update family. 07/21 hypernatremia improving, will continue abx. pulmonary managing vent. 07/22 Na improving, will continue abx. pulmonary managing vent, possible extubate today.
--- NOTE | 2019-07-22 16:49 | PRG ---
DATE OF SERVICE: 07/22/2019 SUBJECTIVE: Bobby French is really not improved. He has significant secretions. Clinical evidence of pulmonary edema. OBJECTIVE: VITAL SIGNS: His heart rate is in the 90s, blood pressure 117/60, and respiratory rates in the low 20s. He has blood-tinged secretions. LUNGS: Remarkable for rhonchi bilaterally. HEART: Regular rhythm. ABDOMEN: Soft. EXTREMITIES: Without asymmetry. Chest radiograph shows findings consistent with pulmonary edema. An echocardiogram showing an ejection fraction of 30% to 40%. Echocardiogram done on July 06 showed an ejection fraction of 10% to 15%. His prognosis for extubation without a tracheostomy is extremely poor. The family wants to continue aggressive care, tracheostomy will be the next step. I would recommend an early tracheostomy. Critical care time is 35 minutes Job ID: [id number] MTDD
[2019-07-22] MEDS: fentaNYL Citrate/PF 2,000 MCG in Sodium Chloride 0.9% 60 ML IV SCH (19:44)
[2019-07-22] MEDS: Montelukast Sodium 10 mg Tablet PO SCH (20:16)
[2019-07-22] MEDS ORDERED: Acetaminophen 325 MG TAB PO PRN (23:20)
[2019-07-22] MEDS ORDERED: Acetaminophen 650 MG/20.3 ML UDCUP PER TUBE PRN (23:21)
[2019-07-22] MEDS ORDERED: Cefepime 2 GM in Sodium Chloride 0.9% 100 ML IVPB SCH (23:30)
--- NOTE | 2019-07-22 23:33 | PDOC.EVN ---
Event Note - Event Note Event Note: Patient spiked fever to 103 F. Tylenol ordered, as well as stat blood and urine cultures. Will give one dose of cefepime and one dose of Vancomycin per Dr. Mast.
[2019-07-22] MEDS ORDERED: Vancomycin HCl 1 GM in Premix Bag 1 BAG IVPB SCH (23:59)
[2019-07-23 00:01] LABS: Bacteria/HPF 4+ HPF (None Seen); Bilirubin Negative (Negative); Blood, Urine 2+ (Negative); Clarity Extra Turbid (Clear); Glucose, Urine (Dipstick) 50 mg/dL (Negative); Leukocyte 75 Leu/uL (Negative); Nitrite Negative (Negative); Protein, Urine (Dipstick) 200 mg/dL (Neg-Trace); RBC/HPF Greater than 50 HPF (0-3); Squamous Epithelial 0-3 HPF (0-3); Urobilinogen Normal mg/dL (Less than 2); WBC/HPF 21-50 HPF (0-3)
[2019-07-23] MEDS: Insulin Regular 300 UNITS/3 ML VIAL SC PRN ×2 (00:10→06:30)
[2019-07-23] MEDS: Ampicillin 2 GM in Sodium Chloride 0.9% 100 ML IVPB SCH ×4 (05:18→23:06)
[2019-07-23 05:37] LABS: Anion Gap 11 mmol/L (10-20); BUN (Urea Nitrogen) 42 mg/dL (8.4-25.7); Calc. Creatinine Clearance 44 mL/min (70-130); Calcium 7.5 mg/dL (7.8-10.44); Carbon Dioxide 28 mmol/L (23-31); Chloride 106 mmol/L (98-107); Estimated GFR-MDRD 41; Glucose 171 mg/dL (83-110); Sodium 142 mmol/L (136-145)
[2019-07-23 05:42] LABS: Potassium 2.7 mmol/L (3.5-5.1)
[2019-07-23] MEDS: Dextrose 5% w/ 20 mEq KCl 1,000 ML IV SCH ×2 (07:07→20:55)
[2019-07-23] MEDS: levETIRAcetam 500 mg/5 ml Oral Solution PER TUBE SCH ×2 (09:16→20:04)
[2019-07-23] MEDS: Famotidine/PF 20 mg/2ml Vial SLOW IVP SCH (09:16)
[2019-07-23] MEDS: Furosemide 40 MG/4 ML VIAL SLOW IVP SCH (09:16)
[2019-07-23] MEDS: Heparin 5,000 UNITS/ML VIAL SC SCH ×2 (09:16→20:04)
[2019-07-23 10:01] LABS: ALT (SGPT) 31 U/L (8-55); AST (SGOT) 57 U/L (5-34); Albumin 2.2 g/dL (3.4-4.8); Alkaline Phosphatase 66 U/L (40-150); Bilirubin, Direct 0.2 mg/dL (0.1-0.3); Bilirubin, Total 0.3 mg/dL (0.2-1.2); Protein, Total 5.6 g/dL (5.8-8.1)
--- NOTE | 2019-07-23 16:55 | PRG ---
DATE OF SERVICE: 07/23/2019 SUBJECTIVE: Bobby French is clinically unchanged open his eyes. He is not sedated. His tidal volumes with pressure support assistance are very small still. OBJECTIVE: VITAL SIGNS: Blood pressure 127/58, heart rate 79, and respiratory rates in the teens to low 20s. LUNGS: Clear. HEART: Regular rhythm. ABDOMEN: Soft and nontender. EXTREMITIES: Without edema. LABORATORY DATA: Sodium 142, potassium 2.7, chloride 106, bicarb 28, BUN 42, and creatinine 1.96. IMPRESSION: 1. History of cerebrovascular accident. 2. Severe left ventricular systolic dysfunction. 3. Pulmonary edema. 4. Extreme deconditioning and cachexia with muscle weakness and an inability to clear secretions or even spontaneously support himself with spontaneous respiration. I doubt a tracheostomy will help him. 5. Acute on chronic kidney disease. 6. Diabetes. Daughter said she wanted to meet with me and then when I came over the ICU about an hour later, she was gone. We called her, she did not answer her phone. Nurse contacted her again, said she would not turn her phone off, so when I got back over to my office, I called her again, she did not answer her phone. I do think this is a preterminal care with an extremely poor short-term prognosis. Job ID: [id number]
--- NOTE | 2019-07-23 18:00 | PDOC.HOSPP ---
- Subjective Encounter Date: 07/23/19 Encounter Time: 10:00 Subjective: pt intubated - Objective Vital Signs & Weight: Vital Signs (12 hours) Temp Pulse Resp BP Pulse Ox 07/23/19 16:00 99.6 F 24 H 07/23/19 14:52 77 07/23/19 14:00 24 H 07/23/19 12:00 99.4 F 24 H 07/23/19 11:03 81 117/67 07/23/19 10:00 24 H 07/23/19 09:13 81 07/23/19 08:00 99.6 F 24 H 100 07/23/19 07:34 79 107/59 L 07/23/19 06:00 24 H Weight Admit Weight 182 lb Weight 197 lb 12.074 oz Most Recent Monitor Data Heart Rate from ECG 85 NIBP 139/66 NIBP BP-Mean 90 Respiration from ECG 21 SpO2 100 I&O: 07/22/19 07/23/19 07/24/19 06:59 06:59 06:59 Intake Total 3458 3217 100 Output Total 1630 1700 700 Balance 1828 1517 -600 Result Diagrams: 07/21/19 04:42 07/23/19 04:20 Additional Labs: Accuchecks 07/23/19 07/23/19 07/22/19 17:10 00:07 18:19 POC Glucose 92 156 H 160 H Hospitalist ROS - Review of Systems Other: unable to obtain - Medication Medications: Active Medications Generic Name Dose Route Start Last Admin Trade Name Freq PRN Reason Stop Dose Admin Acetaminophen 650 mg 07/22/19 23:21 07/22/19 23:36 Tylenol Elixir PER TUBE 650 mg Q4H PRN Administration Fever>101/(Mi/Mod/Sev) Pain Famotidine 20 mg 07/18/19 09:00 07/23/19 09:16 Pepcid SLOW IVP 20 mg DAILY YESSICA Administration Furosemide 40 mg 07/22/19 09:00 07/23/19 09:16 Lasix SLOW IVP 40 mg DAILY YESSICA Administration Heparin Sodium (Porcine) 5,000 units 07/18/19 09:00 07/23/19 09:16 Heparin SC 5,000 units Q12HR YESSICA Administration Fentanyl Citrate 2,000 mcg/ 100 mls @ 0 mls/hr 07/17/19 21:09 07/22/19 19:44 Sodium Chloride IV 08/16/19 21:09 100 mls INF YESSICA Administration Protocol Per Protocol Ampicillin Sodium 2 gm/ Sodium 100 mls @ 200 mls/hr 07/18/19 18:00 07/23/19 17:15 Chloride IVPB 100 mls Q6HR YESSICA Administration Potassium Chloride/Dextrose 1,000 mls @ 60 mls/hr 07/23/19 06:00 07/23/19 07: 07 D5w W/ 20 Meq Kcl IV 1,000 mls .[id number] YESSICA Administration Insulin Human Regular 0 units 07/18/19 00:39 07/23/19 06:30 Humulin R SC 2 units .MODERATE SLIDING SC PRN Administration MODERATE SLIDING SCALE Protocol Levetiracetam 1,000 mg 07/19/19 21:00 07/23/19 09:16 Keppra Oral Solution PER TUBE 1,000 mg BID YESSICA Administration Montelukast Sodium 10 mg 07/19/19 21:00 07/22/19 20:16 Singulair PO 10 mg QPM YESSICA Administration Ondansetron HCl 4 mg 07/20/19 21:57 07/20/19 22:04 Zofran SLOW IVP 4 mg Q6H PRN Administration Nausea/Vomiting - Exam Heart: negative: RRR, no murmur, no gallops, no rubs, normal peripheral pulses, irregular, diminshed peripheral pulses, murmur present, II/IV, III/IV Respiratory: rhonchi, wheezes Gastrointestinal: negative: soft, non-tender, non-distended, normal bowel sounds , no palpable masses, no hepatomegaly, no splenomegaly, no bruit, no guarding, no rigidity, tender to palpation, distended, diminished bowl sounds, voluntary guarding Hosp A/P (1) Acute respiratory failure Code(s): J96.00 - ACUTE RESPIRATORY FAILURE, UNSP W HYPOXIA OR HYPERCAPNIA Status: Acute (2) Bacteremia Code(s): R78.81 - BACTEREMIA Status: Acute (3) Sepsis Code(s): A41.9 - SEPSIS, UNSPECIFIED ORGANISM Status: Acute (4) Stroke Code(s): I63.9 - CEREBRAL INFARCTION, UNSPECIFIED Status: Acute (5) Hypernatremia Code(s): E87.0 - HYPEROSMOLALITY AND HYPERNATREMIA Status: Acute - Plan pt's blood cx indicates enterococcus will add vancomycin. palliative consulted. will consult ID. He is still on levophed. 07/19 pt is off levophed. will continue abx for now. will add free water for hypernatremia and will check bmp in am. 07/20 hypernatremia managed by pulmonary, will continue abx for now. pt received lasix today. will update family. 07/21 hypernatremia improving, will continue abx. pulmonary managing vent. 07/22 Na improving, will continue abx. pulmonary managing vent, possible extubate today. 07/23 will replace K, pt spiked a temp was pancultured. spoke with family about his poor prognosis. Per pulm notes he will need trach. will call daughter in am.
[2019-07-23] MEDS: Montelukast Sodium 10 mg Tablet PO SCH (20:04)
[2019-07-24] MEDS: fentaNYL Citrate/PF 2,000 MCG in Sodium Chloride 0.9% 60 ML IV SCH (03:31)
[2019-07-24] MEDS: Ampicillin 2 GM in Sodium Chloride 0.9% 100 ML IVPB SCH ×4 (05:08→23:14)
[2019-07-24 06:06] LABS: Anion Gap 10 mmol/L (10-20); BUN (Urea Nitrogen) 41 mg/dL (8.4-25.7); Calc. Creatinine Clearance 48 mL/min (70-130); Calcium 7.6 mg/dL (7.8-10.44); Carbon Dioxide 28 mmol/L (23-31); Chloride 105 mmol/L (98-107); Estimated GFR-MDRD 46; Glucose 164 mg/dL (83-110); Potassium 3.1 mmol/L (3.5-5.1); Sodium 140 mmol/L (136-145)
[2019-07-24] MEDS: Insulin Regular 300 UNITS/3 ML VIAL SC PRN ×3 (06:08→18:22)
[2019-07-24] MEDS: levETIRAcetam 500 mg/5 ml Oral Solution PER TUBE SCH ×2 (08:51→20:06)
[2019-07-24] MEDS: Furosemide 40 MG/4 ML VIAL SLOW IVP SCH (08:52)
[2019-07-24] MEDS: Famotidine/PF 20 mg/2ml Vial SLOW IVP SCH (08:53)
[2019-07-24] MEDS: Heparin 5,000 UNITS/ML VIAL SC SCH ×2 (08:53→20:06)
[2019-07-24 09:30] LABS: Actual Bicarbonate (HCO3a) 24.9 mEq/L (22-28); Base Excess (BEa) 2.2 mEq/L (-2.0 to +3.0); CO2 Tension 30.5 mmHg (35.0-45.0); Calcium, Ionized 1.06 mmol/L (1.12-1.30); Hemoglobin (Hb) 7.9 g/dL (14.0-18.0); O2 Tension (PaO2) 88.9 mmHg (> 70.0); Potassium - ABG Lab 3.06 mmol/L (3.70-5.30); pH, Arterial 7.53 (7.35-7.45)
[2019-07-24 09:31] LABS: ALV-art Gradient 158.175 (0-20); Puncture Site RRA
[2019-07-24 12:46] VITALS: BMI 33.1
--- NOTE | 2019-07-24 15:09 | PRG ---
DATE OF SERVICE: 07/24/2019 SUBJECTIVE: Bobby French is OBJECTIVE: VITAL SIGNS: Afebrile, heart rate 85, blood pressure 138/64. He does not follow commands. LUNGS: Clear. HEART: Regular rhythm. ABDOMEN: Soft. LABORATORY DATA: WBC was not done today. Sodium 140, potassium 3.1, chloride 105, bicarb 28, BUN 41, and creatinine 1.79. IMPRESSION: 1. . 2. Respiratory failure secondary to inability to handle secretions. 3. Acute on chronic kidney disease. 4. Status post one blood culture . 5. Pulmonary edema on x-ray. 6. New cardiomyopathy, pericardial effusion. Family was told to be here this morning, but there was no family available when I was making rounds. Decisions need to be made with regards to addressing care such as trach, PEG, etc. There evidence of tamponade . Will follow. Prognosis is poor. Critical care time is 35 minutes. Job ID: [id number] MTDD
[2019-07-24] MEDS: Dextrose 5% w/ 20 mEq KCl 1,000 ML IV SCH (15:25)
--- NOTE | 2019-07-24 15:56 | PDOC.HOSPP ---
- Subjective Encounter Date: 07/24/19 Encounter Time: 14:50 Subjective: pt intubated - Objective Vital Signs & Weight: Vital Signs (12 hours) Temp Pulse Resp BP Pulse Ox 07/24/19 14:30 83 122/62 07/24/19 14:00 14 07/24/19 13:28 81 07/24/19 12:00 98.7 F 15 07/24/19 10:37 85 138/64 07/24/19 10:00 12 07/24/19 08:59 77 07/24/19 08:00 24 H 100 07/24/19 07:08 78 135/60 07/24/19 07:00 98.5 F 07/24/19 06:00 24 H 07/24/19 04:00 24 H Weight Admit Weight 182 lb Weight 198 lb 13.711 oz Most Recent Monitor Data Heart Rate from ECG 89 NIBP 119/66 NIBP BP-Mean 83 Respiration from ECG 15 SpO2 100 I&O: 07/23/19 07/24/19 07/25/19 06:59 06:59 06:59 Intake Total 3217 3413.5 50 Output Total 1700 1470 1290 Balance 1517 1943.5 -1240 Result Diagrams: 07/21/19 04:42 07/24/19 05:34 Additional Labs: Accuchecks 07/23/19 07/23/19 23:38 17:10 POC Glucose 144 H 92 Hospitalist ROS - Review of Systems Other: unable to obtain - Medication Medications: Active Medications Generic Name Dose Route Start Last Admin Trade Name Freq PRN Reason Stop Dose Admin Acetaminophen 650 mg 07/22/19 23:21 07/22/19 23:36 Tylenol Elixir PER TUBE 650 mg Q4H PRN Administration Fever>101/(Mi/Mod/Sev) Pain Famotidine 20 mg 07/18/19 09:00 07/24/19 08:53 Pepcid SLOW IVP 20 mg DAILY YESSICA Administration Furosemide 40 mg 07/22/19 09:00 07/24/19 08:52 Lasix SLOW IVP 40 mg DAILY YESSICA Administration Heparin Sodium (Porcine) 5,000 units 07/18/19 09:00 07/24/19 08:53 Heparin SC 5,000 units Q12HR YESSICA Administration Fentanyl Citrate 2,000 mcg/ 100 mls @ 0 mls/hr 07/17/19 21:09 07/24/19 03:31 Sodium Chloride IV 08/16/19 21:09 100 mls INF YESSICA Administration Protocol Per Protocol Ampicillin Sodium 2 gm/ Sodium 100 mls @ 200 mls/hr 07/18/19 18:00 07/24/19 12:16 Chloride IVPB 100 mls Q6HR YESSICA Administration Potassium Chloride/Dextrose 1,000 mls @ 60 mls/hr 07/23/19 06:00 07/24/19 15: 25 D5w W/ 20 Meq Kcl IV Not Given .[id number] [facility] Insulin Human Regular 0 units 07/18/19 00:39 07/24/19 13:03 Humulin R SC 4 units .MODERATE SLIDING SC PRN Administration MODERATE SLIDING SCALE Protocol Levetiracetam 1,000 mg 07/19/19 21:00 07/24/19 08:51 Keppra Oral Solution PER TUBE 1,000 mg BID YESSICA Administration Montelukast Sodium 10 mg 07/19/19 21:00 07/23/19 20:04 Singulair PO 10 mg QPM YESSCIA Administration Ondansetron HCl 4 mg 07/20/19 21:57 07/20/19 22:04 Zofran SLOW IVP 4 mg Q6H PRN Administration Nausea/Vomiting - Exam Heart: negative: RRR, no murmur, no gallops, no rubs, normal peripheral pulses, irregular, diminshed peripheral pulses, murmur present, II/IV, III/IV Respiratory: negative: CTAB, no wheezes, no rales, no ronchi, normal chest expansion, no tachypnea, normal percussion, rales, rhonchi, tachypneic, wheezes Gastrointestinal: negative: soft, non-tender, non-distended, normal bowel sounds , no palpable masses, no hepatomegaly, no splenomegaly, no bruit, no guarding, no rigidity, tender to palpation, distended, diminished bowl sounds, voluntary guarding Hosp A/P (1) Acute respiratory failure Code(s): J96.00 - ACUTE RESPIRATORY FAILURE, UNSP W HYPOXIA OR HYPERCAPNIA Status: Acute (2) Bacteremia Code(s): R78.81 - BACTEREMIA Status: Acute (3) Sepsis Code(s): A41.9 - SEPSIS, UNSPECIFIED ORGANISM Status: Acute (4) Stroke Code(s): I63.9 - CEREBRAL INFARCTION, UNSPECIFIED Status: Acute (5) Hypernatremia Code(s): E87.0 - HYPEROSMOLALITY AND HYPERNATREMIA Status: Acute - Plan pt's blood cx indicates enterococcus will add vancomycin. palliative consulted. will consult ID. He is still on levophed. 07/19 pt is off levophed. will continue abx for now. will add free water for hypernatremia and will check bmp in am. 07/20 hypernatremia managed by pulmonary, will continue abx for now. pt received lasix today. will update family. 07/21 hypernatremia improving, will continue abx. pulmonary managing vent. 07/22 Na improving, will continue abx. pulmonary managing vent, possible extubate today. 07/23 will replace K, pt spiked a temp was pancultured. spoke with family about his poor prognosis. Per pulm notes he will need trach. will call daughter in am. 07/24 will call pt's daughter and update. will continue current abx. overall poor outcome. Had an extensive talk with pt's family.
[2019-07-24] MEDS: Montelukast Sodium 10 mg Tablet PO SCH (20:06)
[2019-07-25] MEDS: Ampicillin 2 GM in Sodium Chloride 0.9% 100 ML IVPB SCH ×4 (05:16→23:58)
[2019-07-25 05:29] LABS: Anion Gap 10 mmol/L (10-20); BUN (Urea Nitrogen) 37 mg/dL (8.4-25.7); Calc. Creatinine Clearance 60 mL/min (70-130); Calcium 7.8 mg/dL (7.8-10.44); Carbon Dioxide 31 mmol/L (23-31); Chloride 105 mmol/L (98-107); Estimated GFR-MDRD 58; Glucose 154 mg/dL (83-110); Potassium 3.3 mmol/L (3.5-5.1); Sodium 143 mmol/L (136-145)
[2019-07-25] MEDS: Insulin Regular 300 UNITS/3 ML VIAL SC PRN ×2 (05:32→12:15)
[2019-07-25 06:44] LABS: Actual Bicarbonate (HCO3a) 31.1 mEq/L (22-28); CO2 Tension 55.6 mmHg (35.0-45.0); Calcium, Ionized 1.14 mmol/L (1.12-1.30); Carboxyhemoglobin (COHb) 1.3 gm% (0.0-3.0); Hemoglobin (Hb) 8.1 g/dL (14.0-18.0); O2 Tension (PaO2) 95.6 mmHg (> 70.0); pH, Arterial 7.37 (7.35-7.45)
[2019-07-25 06:53] LABS: Puncture Site LRA
[2019-07-25] MEDS: Dextrose 5% w/ 20 mEq KCl 1,000 ML IV SCH (07:34)
[2019-07-25] MEDS: fentaNYL Citrate/PF 2,000 MCG in Sodium Chloride 0.9% 60 ML IV SCH (07:55)
--- NOTE | 2019-07-25 08:16 | PDOC.EVN ---
Event Note - Event Note Event Note: spoke with pt's daughter Whitney who stated that she will come [place] and they wanted to extubate the pt. They do not want trach.
[2019-07-25] MEDS: Heparin 5,000 UNITS/ML VIAL SC SCH ×2 (08:44→20:41)
[2019-07-25] MEDS: Furosemide 40 MG/4 ML VIAL SLOW IVP SCH (08:44)
[2019-07-25] MEDS: levETIRAcetam 500 mg/5 ml Oral Solution PER TUBE SCH ×2 (08:45→20:41)
[2019-07-25] MEDS: Famotidine/PF 20 mg/2ml Vial SLOW IVP SCH (08:45)
[2019-07-25] MEDS ORDERED: CCU Electrolyte Replacement 1 EACH FS ONE (11:08)
--- NOTE | 2019-07-25 11:09 | PDOC.HOSPP ---
- Subjective Encounter Date: 07/25/19 Encounter Time: 10:30 Subjective: pt intubated - Objective Vital Signs & Weight: Vital Signs (12 hours) Temp Pulse Resp Pulse Ox 07/25/19 10:09 86 07/25/19 10:00 12 07/25/19 08:00 97.9 F 15 100 07/25/19 06:39 84 07/25/19 06:00 12 07/25/19 04:00 97.9 F 12 07/25/19 02:00 25 H 07/25/19 00:00 98.6 F 12 Weight Admit Weight 182 lb Weight 198 lb 10.184 oz Most Recent Monitor Data Heart Rate from ECG 93 NIBP 112/58 NIBP BP-Mean 76 Respiration from ECG 16 SpO2 100 I&O: 07/24/19 07/25/19 07/26/19 06:59 06:59 06:59 Intake Total 3413.5 2637 100 Output Total 1470 2565 330 Balance 1943.5 72 -230 Result Diagrams: 07/21/19 04:42 07/25/19 04:57 Additional Labs: Accuchecks 07/25/19 07/24/19 00:14 18:25 POC Glucose 144 H 185 H Hospitalist ROS - Review of Systems Other: unable to obtain - Medication Medications: Active Medications Generic Name Dose Route Start Last Admin Trade Name Jessie PRN Reason Stop Dose Admin Acetaminophen 650 mg 07/22/19 23:21 07/22/19 23:36 Tylenol Elixir PER TUBE 650 mg Q4H PRN Administration Fever>101/(Mi/Mod/Sev) Pain Famotidine 20 mg 07/18/19 09:00 07/25/19 08:45 Pepcid SLOW IVP 20 mg DAILY YSESICA Administration Furosemide 40 mg 07/22/19 09:00 07/25/19 08:44 Lasix SLOW IVP 40 mg DAILY YESSICA Administration Heparin Sodium (Porcine) 5,000 units 07/18/19 09:00 07/25/19 08:44 Heparin SC 5,000 units Q12HR YESSICA Administration Fentanyl Citrate 2,000 mcg/ 100 mls @ 0 mls/hr 07/17/19 21:09 07/25/19 07:55 Sodium Chloride IV 08/16/19 21:09 100 mls INF YESSICA Administration Protocol Per Protocol Ampicillin Sodium 2 gm/ Sodium 100 mls @ 200 mls/hr 07/18/19 18:00 07/25/19 05:16 Chloride IVPB 100 mls Q6HR YESSICA Administration Potassium Chloride/Dextrose 1,000 mls @ 60 mls/hr 07/23/19 06:00 07/25/19 07: 34 D5w W/ 20 Meq Kcl IV Not Given .[id number] YESSICA Insulin Human Regular 0 units 07/18/19 00:39 07/25/19 05:32 Humulin R SC 2 units .MODERATE SLIDING SC PRN Administration MODERATE SLIDING SCALE Protocol Levetiracetam 1,000 mg 07/19/19 21:00 07/25/19 08:45 Keppra Oral Solution PER TUBE 1,000 mg BID YESSICA Administration Montelukast Sodium 10 mg 07/19/19 21:00 07/24/19 20:06 Singulair PO 10 mg QPM YESSICA Administration Ondansetron HCl 4 mg 07/20/19 21:57 07/20/19 22:04 Zofran SLOW IVP 4 mg Q6H PRN Administration Nausea/Vomiting - Exam Neck: negative: supple, symmetric, no JVD, no thyromegaly, no lymphadenopathy, no carotid bruit, JVD Heart: negative: RRR, no murmur, no gallops, no rubs, normal peripheral pulses, irregular, diminshed peripheral pulses, murmur present, II/IV, III/IV Respiratory: negative: CTAB, no wheezes, no rales, no ronchi, normal chest expansion, no tachypnea, normal percussion, rales, rhonchi, tachypneic, wheezes Hosp A/P (1) Acute respiratory failure Code(s): J96.00 - ACUTE RESPIRATORY FAILURE, UNSP W HYPOXIA OR HYPERCAPNIA Status: Acute (2) Bacteremia Code(s): R78.81 - BACTEREMIA Status: Acute (3) Sepsis Code(s): A41.9 - SEPSIS, UNSPECIFIED ORGANISM Status: Acute (4) Stroke Code(s): I63.9 - CEREBRAL INFARCTION, UNSPECIFIED Status: Acute (5) Hypernatremia Code(s): E87.0 - HYPEROSMOLALITY AND HYPERNATREMIA Status: Acute - Plan pt's blood cx indicates enterococcus will add vancomycin. palliative consulted. will consult ID. He is still on levophed. 07/19 pt is off levophed. will continue abx for now. will add free water for hypernatremia and will check bmp in am. 07/20 hypernatremia managed by pulmonary, will continue abx for now. pt received lasix today. will update family. 07/21 hypernatremia improving, will continue abx. pulmonary managing vent. 07/22 Na improving, will continue abx. pulmonary managing vent, possible extubate today. 07/23 will replace K, pt spiked a temp was pancultured. spoke with family about his poor prognosis. Per pulm notes he will need trach. will call daughter in am. 07/24 will call pt's daughter and update. will continue current abx. overall poor outcome. Had an extensive talk with pt's family. 07/25 will continue abx, spoke with one of her daughter who is coming in vicki from [place]. per my conversation with her they wanted to exubate the patient and no trach but she wanted to be at the bedside. will replace electrolytes.
[2019-07-25] MEDS ORDERED: Potassium Chloride 40 MEQ in Sodium Chloride 0.9% 250 ML 250 ML IVPB PRN (11:10)
[2019-07-25] MEDS ORDERED: PHOS-NAK 1 PKT PACK PO PRN ×2 (11:10)
[2019-07-25] MEDS ORDERED: Potassium Chloride 40 MEQ in Premix Bag 1 BAG IVPB PRN (11:10)
[2019-07-25] MEDS ORDERED: Potassium Phosphate 9 MMOL in Sodium Chloride 0.9% 100 ML IVPB PRN (11:10)
[2019-07-25] MEDS ORDERED: Potassium Chloride 20 MEQ TAB PO PRN (11:10)
[2019-07-25] MEDS ORDERED: Magnesium Oxide 400 MG TAB PO PRN ×2 (11:10)
[2019-07-25] MEDS ORDERED: Potassium Phosphate 15 MMOL in Sodium Chloride 0.9% 250 ML 250 ML IV PRN (11:10)
[2019-07-25] MEDS ORDERED: Potassium Phosphate 12 MMOL in Sodium Chloride 0.9% 250 ML 250 ML IV PRN (11:10)
[2019-07-25] MEDS ORDERED: Magnesium 2 GM/50 ML 2 GM in Premix Bag 1 BAG IVPB PRN (11:10)
--- NOTE | 2019-07-25 16:35 | PRG ---
DATE OF SERVICE: 07/25/2019 SUBJECTIVE: Bobby French is clinically unchanged. He actually opened his eyes today which is more than he has been doing for me in the past. OBJECTIVE: VITAL SIGNS. Heart rate is 88, blood pressure 116/61, respiratory rate 12. LUNGS: Remarkable for mild rhonchi. HEART: Regular rhythm. ABDOMEN: Soft. LABORATORY DATA: Sodium 143, potassium 3.3, chloride 105, bicarb 31, BUN 37, creatinine 1.45. PH 7.37, CO2 of 55, PO2 of 95. IMPRESSION: 1. Acute hypoxemic and hypercarbic respiratory failure secondary to extreme deconditioning after being left bedridden after cerebrovascular accident. 2. Severe cardiomyopathy, likely ischemic, not a candidate for any invasive workup. I am told family plans terminal extubation when the daughter gets in from out of town. She will not be until tomorrow night. Job ID: [id number]
[2019-07-25] MEDS: Montelukast Sodium 10 mg Tablet PO SCH (20:41)
[2019-07-26] MEDS: fentaNYL Citrate/PF 2,000 MCG in Sodium Chloride 0.9% 60 ML IV SCH ×2 (01:09→20:34)
[2019-07-26] MEDS: Dextrose 5% w/ 20 mEq KCl 1,000 ML IV SCH ×2 (02:31→17:36)
[2019-07-26 05:09] LABS: Anion Gap 8 mmol/L (10-20); BUN (Urea Nitrogen) 34 mg/dL (8.4-25.7); Calc. Creatinine Clearance 61 mL/min (70-130); Calcium 8.6 mg/dL (7.8-10.44); Carbon Dioxide 33 mmol/L (23-31); Chloride 105 mmol/L (98-107); Estimated GFR-MDRD 60; Glucose 180 mg/dL (83-110); Potassium 3.7 mmol/L (3.5-5.1); Sodium 142 mmol/L (136-145)
[2019-07-26] MEDS: Ampicillin 2 GM in Sodium Chloride 0.9% 100 ML IVPB SCH ×3 (05:56→17:37)
[2019-07-26] MEDS: Famotidine/PF 20 mg/2ml Vial SLOW IVP SCH (10:15)
[2019-07-26] MEDS: levETIRAcetam 500 mg/5 ml Oral Solution PER TUBE SCH ×2 (10:16→20:01)
[2019-07-26] MEDS: Furosemide 40 MG/4 ML VIAL SLOW IVP SCH (10:16)
[2019-07-26] MEDS: Heparin 5,000 UNITS/ML VIAL SC SCH ×2 (10:16→20:01)
--- NOTE | 2019-07-26 12:21 | PDOC.HOSPP ---
- Subjective Encounter Date: 07/26/19 Encounter Time: 09:15 Subjective: pt intubated, no changes. Daughter to come in tonight - Objective Vital Signs & Weight: Vital Signs (12 hours) Temp Resp 07/26/19 10:00 12 07/26/19 08:00 12 07/26/19 05:59 12 07/26/19 04:00 98.7 F 12 07/26/19 02:00 12 Weight Admit Weight 182 lb Weight 197 lb 12.074 oz Most Recent Monitor Data Heart Rate from ECG 78 NIBP 127/62 NIBP BP-Mean 83 Respiration from ECG 12 SpO2 100 I&O: 07/25/19 07/26/19 07/27/19 06:59 06:59 06:59 Intake Total 2637 2124.3 Output Total 2565 2382 Balance 72 -257.7 Result Diagrams: 07/21/19 04:42 07/26/19 04:25 Additional Labs: Accuchecks 07/26/19 07/26/19 07/26/19 10:59 05:54 00:06 POC Glucose 133 H 132 H 148 H 07/25/19 07/25/19 18:15 12:17 POC Glucose 124 H 222 H Hospitalist ROS - Review of Systems Other: unable to obtain - Medication Medications: Active Medications Generic Name Dose Route Start Last Admin Trade Name Freq PRN Reason Stop Dose Admin Acetaminophen 650 mg 07/22/19 23:21 07/22/19 23:36 Tylenol Elixir PER TUBE 650 mg Q4H PRN Administration Fever>101/(Mi/Mod/Sev) Pain Famotidine 20 mg 07/18/19 09:00 07/26/19 10:15 Pepcid SLOW IVP 20 mg DAILY YESSICA Administration Furosemide 40 mg 07/22/19 09:00 07/26/19 10:16 Lasix SLOW IVP 40 mg DAILY YESSICA Administration Heparin Sodium (Porcine) 5,000 units 07/18/19 09:00 07/26/19 10:16 Heparin SC 5,000 units Q12HR YESSICA Administration Fentanyl Citrate 2,000 mcg/ 100 mls @ 0 mls/hr 07/17/19 21:09 07/26/19 01:09 Sodium Chloride IV 08/16/19 21:09 100 mls INF YESSICA Administration Protocol Per Protocol Ampicillin Sodium 2 gm/ Sodium 100 mls @ 200 mls/hr 07/18/19 18:00 07/26/19 11:35 Chloride IVPB 100 mls Q6HR YESSICA Administration Potassium Chloride/Dextrose 1,000 mls @ 60 mls/hr 07/23/19 06:00 07/26/19 02: 31 D5w W/ 20 Meq Kcl IV Not Given .[id number] YESSICA Potassium Chloride 40 meq/ 270 mls @ 135 mls/hr 07/25/19 11:10 07/25/19 14:15 Sodium Chloride IVPB 270 mls ASDIR PRN Administration FOR SERUM K+ 2.5 - 3.5 Insulin Human Regular 0 units 07/18/19 00:39 07/25/19 12:15 Humulin R SC 4 units .MODERATE SLIDING SC PRN Administration MODERATE SLIDING SCALE Protocol Levetiracetam 1,000 mg 07/19/19 21:00 07/26/19 10:16 Keppra Oral Solution PER TUBE 1,000 mg BID YESSICA Administration Montelukast Sodium 10 mg 07/19/19 21:00 07/25/19 20:41 Singulair PO 10 mg QPM YESSICA Administration Ondansetron HCl 4 mg 07/20/19 21:57 07/20/19 22:04 Zofran SLOW IVP 4 mg Q6H PRN Administration Nausea/Vomiting - Exam Neck: negative: supple, symmetric, no JVD, no thyromegaly, no lymphadenopathy, no carotid bruit, JVD Heart: negative: RRR, no murmur, no gallops, no rubs, normal peripheral pulses, irregular, diminshed peripheral pulses, murmur present, II/IV, III/IV Respiratory: negative: CTAB, no wheezes, no rales, no ronchi, normal chest expansion, no tachypnea, normal percussion, rales, rhonchi, tachypneic, wheezes Hosp A/P (1) Acute respiratory failure Code(s): J96.00 - ACUTE RESPIRATORY FAILURE, UNSP W HYPOXIA OR HYPERCAPNIA Status: Acute (2) Bacteremia Code(s): R78.81 - BACTEREMIA Status: Acute (3) Sepsis Code(s): A41.9 - SEPSIS, UNSPECIFIED ORGANISM Status: Acute (4) Stroke Code(s): I63.9 - CEREBRAL INFARCTION, UNSPECIFIED Status: Acute (5) Hypernatremia Code(s): E87.0 - HYPEROSMOLALITY AND HYPERNATREMIA Status: Acute - Plan pt's blood cx indicates enterococcus will add vancomycin. palliative consulted. will consult ID. He is still on levophed. 07/19 pt is off levophed. will continue abx for now. will add free water for hypernatremia and will check bmp in am. 07/20 hypernatremia managed by pulmonary, will continue abx for now. pt received lasix today. will update family. 07/21 hypernatremia improving, will continue abx. pulmonary managing vent. 07/22 Na improving, will continue abx. pulmonary managing vent, possible extubate today. 07/23 will replace K, pt spiked a temp was pancultured. spoke with family about his poor prognosis. Per pulm notes he will need trach. will call daughter in am. 07/24 will call pt's daughter and update. will continue current abx. overall poor outcome. Had an extensive talk with pt's family. 07/25 will continue abx, spoke with one of her daughter who is coming in vicki from [place]. per my conversation with her they wanted to exubate the patient and no trach but she wanted to be at the bedside. will replace electrolytes. 07/26 will continue current tx, family coming in for extubation in am.
[2019-07-26] MEDS: Insulin Regular 300 UNITS/3 ML VIAL SC PRN (17:38)
[2019-07-26] MEDS: Montelukast Sodium 10 mg Tablet PO SCH (20:01)
[2019-07-27 00:01] VITALS: BP 126/58
[2019-07-27] MEDS: Ampicillin 2 GM in Sodium Chloride 0.9% 100 ML IVPB SCH ×3 (00:21→12:18)
[2019-07-27 05:22] LABS: Anion Gap 9 mmol/L (10-20); BUN (Urea Nitrogen) 35 mg/dL (8.4-25.7); Calc. Creatinine Clearance 69 mL/min (70-130); Calcium 8.6 mg/dL (7.8-10.44); Carbon Dioxide 33 mmol/L (23-31); Chloride 105 mmol/L (98-107); Estimated GFR-MDRD 69; Glucose 155 mg/dL (83-110); Potassium 3.4 mmol/L (3.5-5.1); Sodium 144 mmol/L (136-145)
[2019-07-27] MEDS: Famotidine/PF 20 mg/2ml Vial SLOW IVP SCH (09:53)
[2019-07-27] MEDS: Heparin 5,000 UNITS/ML VIAL SC SCH (09:53)
[2019-07-27] MEDS: Furosemide 40 MG/4 ML VIAL SLOW IVP SCH (09:53)
[2019-07-27] MEDS: levETIRAcetam 500 mg/5 ml Oral Solution PER TUBE SCH ×2 (09:53→20:49)
[2019-07-27] MEDS: Dextrose 5% w/ 20 mEq KCl 1,000 ML IV SCH (10:00)
--- NOTE | 2019-07-27 10:14 | PRG ---
DATE OF SERVICE: 07/27/2019 SUBJECTIVE: Bobby French is a 73-year-old gentleman, remains intubated in the vent, sedated. OBJECTIVE: VITAL SIGNS: His pulse 105, blood pressure 148/65, sats 100%, respirations 18. CHEST: Decreased breath sounds. No wheezing. CARDIAC: Normal S1 and S2. ABDOMEN: Distended. EXTREMITIES: 2+ edema. LABORATORY DATA: Creatinine 1.25. ASSESSMENT: 1. Respiratory failure. 2. Severe deconditioning. 3. Cerebrovascular accident. 4. Cardiomyopathy. PLAN: Comfort care. He is not weanable when family arrives. I am told to go ahead and extubate, comfort care. He made DNR at that time. One-half hour of critical time. Job ID: [id number]
[2019-07-27] MEDS: Insulin Regular 300 UNITS/3 ML VIAL SC PRN (12:52)
--- NOTE | 2019-07-27 15:09 | PDOC.HOSPP ---
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 Impression of shock was made and patient was started on broad spectrum antibiotics as well as IVF and pressors. Patient has been vent dependent and tracheostomy is considered but relatives will rather wean him off vent terminally given his general condition and prior history of tracheostomy s/p revision. - Objective Vital Signs & Weight: Vital Signs (12 hours) Temp Pulse Resp Pulse Ox 07/27/19 14:00 12 07/27/19 13:21 93 07/27/19 12:00 12 07/27/19 11:01 87 07/27/19 10:00 12 07/27/19 08:00 12 100 07/27/19 07:57 105 H 07/27/19 06:00 12 07/27/19 04:00 98.9 F 14 07/27/19 03:40 86 Weight Admit Weight 182 lb Weight 200 lb 9.93 oz Most Recent Monitor Data Heart Rate from ECG 95 NIBP 132/66 NIBP BP-Mean 88 Respiration from ECG 12 SpO2 100 I&O: 07/26/19 07/27/19 07/28/19 06:59 06:59 06:59 Intake Total 2124.3 3113.1 220 Output Total 2382 2435 70 Balance -257.7 678.1 150 Result Diagrams: 07/21/19 04:42 07/27/19 04:45 Additional Labs: Accuchecks 07/27/19 07/27/19 07/27/19 12:40 06:25 00:26 POC Glucose 160 H 143 H 123 H 07/26/19 16:33 POC Glucose 195 H Hospitalist ROS - Medication Medications: Active Medications Generic Name Dose Route Start Last Admin Trade Name Freq PRN Reason Stop Dose Admin Acetaminophen 650 mg 07/22/19 23:21 07/22/19 23:36 Tylenol Elixir PER TUBE 650 mg Q4H PRN Administration Fever>101/(Mi/Mod/Sev) Pain Fentanyl Citrate 2,000 mcg/ 100 mls @ 0 mls/hr 07/17/19 21:09 07/26/19 20:34 Sodium Chloride IV 08/16/19 21:09 100 mls INF YESSICA Administration Protocol Per Protocol Levetiracetam 1,000 mg 07/19/19 21:00 07/27/19 09:53 Keppra Oral Solution PER TUBE 1,000 mg BID YESSICA Administration - Exam General - other findings: unresponsive ENT: normocephalic atraumatic ENT - other findings: ET tube in place Heart: RRR, murmur present Respiratory - other findings: ventilator transmitted breath sound noted Gastrointestinal: soft, non-distended Extremities: 2+ LE edema Neurological - other findings: sedated and unresponsive Musculoskeletal: diffuse muscle atrophy Hosp A/P (1) Septic shock Code(s): A41.9 - SEPSIS, UNSPECIFIED ORGANISM; R65.21 - SEVERE SEPSIS WITH SEPTIC SHOCK Status: Acute (2) Pneumonia Code(s): J18.9 - PNEUMONIA, UNSPECIFIED ORGANISM Status: Acute (3) Enterococcal bacteremia Code(s): R78.81 - BACTEREMIA; B95.2 - ENTEROCOCCUS THE CAUSE OF DISEASES CLASSIFIED ELSEWHERE Status: Acute (4) Rhabdomyolysis Code(s): M62.82 - RHABDOMYOLYSIS Status: Acute (5) Hyperglobulinemia Code(s): R77.1 - ABNORMALITY OF GLOBULIN Status: Acute (6) Pericardial effusion Code(s): I31.3 - PERICARDIAL EFFUSION (NONINFLAMMATORY) Status: Acute (7) Hypokalemia Code(s): E87.6 - HYPOKALEMIA Status: Acute (8) Seizure disorder Code(s): G40.909 - EPILEPSY, UNSP, NOT INTRACTABLE, WITHOUT STATUS EPILEPTICUS Status: Acute (9) Diabetes mellitus Code(s): E11.9 - TYPE 2 DIABETES MELLITUS WITHOUT COMPLICATIONS Status: Acute (10) Acute metabolic encephalopathy Code(s): G93.41 - METABOLIC ENCEPHALOPATHY Status: Acute (11) Acute respiratory failure Code(s): J96.00 - ACUTE RESPIRATORY FAILURE, UNSP W HYPOXIA OR HYPERCAPNIA Status: Acute (12) Hypernatremia Code(s): E87.0 - HYPEROSMOLALITY AND HYPERNATREMIA Status: Acute (13) Cardiomyopathy Code(s): I42.9 - CARDIOMYOPATHY, UNSPECIFIED Status: Acute (14) Myocardial infarction type 2 Code(s): I21.A1 - MYOCARDIAL INFARCTION TYPE 2 Status: Acute (15) Severe systolic congestive heart failure Code(s): I50.20 - UNSPECIFIED SYSTOLIC (CONGESTIVE) HEART FAILURE Status: Acute - Plan Discussed with patient's children (4 in number) with other family memebers about patient problems and prognosis. They elected to terminally wean him off the ventilator with comfort care only. They will also like hospice care if needed. Will start comfort only care and discontinue treatment with therapeutic intention. Consult case magt to arrange hospice care.
[2019-07-27] MEDS: Morphine 4 MG/ML VIAL SLOW IVP PRN ×2 (18:15→19:30)
[2019-07-27] MEDS: Lorazepam 2 MG/ML VIAL SLOW IVP PRN ×2 (18:15→19:30)
[2019-07-28] MEDS: Morphine 4 MG/ML VIAL SLOW IVP PRN ×3 (08:35→14:23)
[2019-07-28] MEDS: levETIRAcetam 500 mg/5 ml Oral Solution PER TUBE SCH (09:54)
--- NOTE | 2019-07-28 10:59 | PRG ---
DATE OF SERVICE: 07/28/2019 SUBJECTIVE: Bobby French is a 73-year-old gentleman. This morning, he was extubated yesterday, agonal respiration. No distress. OBJECTIVE: VITAL SIGNS: 71/45 is the blood pressure, pulse 53 family members at the bedside. CHEST: Decreased breath sounds. No wheezing. CARDIAC: Normal S1 and S2. ABDOMEN: Soft. ASSESSMENT: 1. Terminal extubation. 2. Respiratory failure. 3. Encephalopathy. 4. Cardiomyopathy. PLAN: Continue morphine, Ativan as needed. He can probably be transferred out of the ICU. Job ID: [id number]
[2019-07-28 12:30] VITALS: TEMP 98.3
--- NOTE | 2019-07-28 19:36 | DIS ---
DATE OF ADMISSION: 07/17/2019 DATE OF DISCHARGE: 07/28/2019 PRIMARY CARE PHYSICIAN: Av Ramírez MD DISCHARGE DIAGNOSES: 1. Septic shock. 2. Pneumonia. 3. Enterococcal bacteremia. 4. Rhabdomyolysis. 5. Hyperglobulinemia. 6. Pericardial effusion. 7. Hypokalemia. 8. Seizure disorder. 9. Acute metabolic encephalopathy, present on admission. 10. Diabetes mellitus. 11. Acute respiratory failure requiring intubation. 12. Hyponatremia. 13. Cardiomyopathy. 14. Type 2 myocardial infarction. 15. Severe systolic congestive heart failure. CONSULTATIONS: 1. Pulmonary and Critical Care. 2. Infectious Disease. HOSPITAL COURSE: A 73-year-old male patient, [facility] with multiple comorbidities including cardiomyopathy, right-sided hemiparesis from prior CVA, seizure disorder, diabetes mellitus and others, admitted with respiratory distress associated with altered mental status and hypotension. Impression of septic shock from presumed pneumonia was made and the patient was started on broad-spectrum antibiotic therapy as well as IV fluid and pressors. Further evaluation revealed features of pneumonia, which was thought to be healthcare associated as well as Enterococcal bacteremia. Infectious Disease consult was obtained and antibiotics were adjusted appropriately. Antiepileptics were continued during this hospitalization. Hemodynamics were improved, though the patient continued to require pressors and was vent dependent. Given that the patient was not improving both hemodynamically and mentally, Palliative Care consult was obtained. Extensive discussions were started with family members, which culminated the family members deciding to terminally wean patient off ventilator. The patient was terminally extubated on July 27, 2019. Further discussion with family led to the patient being discharged to Inpatient Hospice. Of note, given that the patient was vent dependent, discussion was had with relatives for tracheostomy and PEG tube placement, but they considered via private previous experience with vent with tracheostomy as well as PEG tube placement. They decided again this and decided to proceed with terminal weaning. DISCHARGE CONDITION: Guarded with poor prognosis. DISCHARGE DISPOSITION: Inpatient Hospice. TIME SPENT: This discharge took less than 30 minutes. Job ID: [id number]
== END 2019-07-28 16:14 | disposition hospice, inpatient (51) | DRG 870 ==
LOC: ERS 19:37 → CCU 20:50 → T4-B 07-28 15:39
PROVIDERS: ADMIT Internal Medicine; ATTEND Internal Medicine
PROC: 5A1955Z Respiratory Ventilation, Greater than 96 Consecutive Hours (ICD-10-PCS; principal; 2019-07-17)
PROC: 0BH17EZ Insertion of Endotracheal Airway into Trachea, Via Natural or Artificial Opening (ICD-10-PCS; 2019-07-17)
PROC: 3E033XZ Introduction of Vasopressor into Peripheral Vein, Percutaneous Approach (ICD-10-PCS; 2019-07-17)
PROC: 02HV33Z Insertion of Infusion Device into Superior Vena Cava, Percutaneous Approach (ICD-10-PCS; 2019-07-17)
DX: A41.81 Sepsis due to Enterococcus (principal); L89.624 Pressure ulcer of left heel, stage 4; L89.614 Pressure ulcer of right heel, stage 4; R65.21 Severe sepsis with septic shock; J18.9 Pneumonia, unspecified organism; J96.01 Acute respiratory failure with hypoxia; I50.23 Acute on chronic systolic (congestive) heart failure; J96.02 Acute respiratory failure with hypercapnia; G93.41 Metabolic encephalopathy; I21.A1 Myocardial infarction type 2; I69.351 Hemiplegia and hemiparesis following cerebral infarction affecting right dominant side; N17.9 Acute kidney failure, unspecified; I31.3 Pericardial effusion (noninflammatory); E87.0 Hyperosmolality and hypernatremia; I13.0 Hypertensive heart and chronic kidney disease with heart failure and stage 1 through stage 4 chronic kidney disease, or unspecified chronic kidney disease; R64 Cachexia; M62.82 Rhabdomyolysis; R47.01 Aphasia; Z66 Do not resuscitate; Z51.5 Encounter for palliative care; E78.00 Pure hypercholesterolemia, unspecified; E78.5 Hyperlipidemia, unspecified; F03.90 Unspecified dementia, unspecified severity, without behavioral disturbance, psychotic disturbance, mood disturbance, and anxiety; G40.909 Epilepsy, unspecified, not intractable, without status epilepticus; D64.9 Anemia, unspecified; E11.43 Type 2 diabetes mellitus with diabetic autonomic (poly)neuropathy; K31.84 Gastroparesis; R77.1 Abnormality of globulin; I25.5 Ischemic cardiomyopathy; E87.6 Hypokalemia; N18.9 Chronic kidney disease, unspecified; E11.22 Type 2 diabetes mellitus with diabetic chronic kidney disease; L89.152 Pressure ulcer of sacral region, stage 2; Y95 Nosocomial condition; Z93.1 Gastrostomy status; Z74.01 Bed confinement status; Z68.32 Body mass index [BMI] 32.0-32.9, adult; Z79.4 Long term (current) use of insulin; Z79.899 Other long term (current) drug therapy; Z79.82 Long term (current) use of aspirin
CPT/HCPCS: 31500; 36415; 36416; 36556; 51702; 71045; 80048; 80053; 80076; 81001; 81003; 81015; 82550; 82553; 82805; 83605; 83690; 83735; 83880; 84100; 84484; 85025; 85610; 85730; 87040; 87077; 87086; 87149; 87186; 93005; 93306; 94002; 94003; 96361; 96365; 96368; 96375; 99292; J0290; J0692; J1644; J1815; J1940; J1956; J2020; J2060; J2270; J2405; J2543; J3010; J3370; J3480; J3490; J7050; J7070; J7620; S0028

== ENCOUNTER 2019-07-28 16:35 | Inpatient (IN) | payer OTHER ==
[2019-07-28] MEDS ORDERED: Bisacodyl 10 MG SUPP PR PRN (16:44)
[2019-07-28] MEDS ORDERED: Lorazepam 2 MG/ML VIAL SLOW IVP PRN (16:45)
[2019-07-28] MEDS ORDERED: Morphine 4 MG/ML VIAL SLOW IVP PRN (16:46)
--- NOTE | 2019-07-29 14:52 | DIS ---
DATE OF ADMISSION: 07/28/2019 DATE OF DISCHARGE: 07/28/2019 DATE OF : 07/28/2019. ADMIT DIAGNOSIS: Failed inpatient treatment for septic shock, pneumonia, and enterococcal bacteremia. Also several long list of comorbidities. Please see the previous discharge summary, leaving the ICU into hospice care. The patient was extubated and transferred over to palliative care. Family was in agreement of removing life-saving treatments and kept him as comfortable. He well within few hours. Job ID: [id number]
== END 2019-07-28 16:55 | disposition expired | DRG 951 ==
LOC: T4-B 16:35
PROVIDERS: ADMIT Family Medicine; ATTEND Family Medicine
DX: Z51.5 Encounter for palliative care (principal); A41.81 Sepsis due to Enterococcus; R65.21 Severe sepsis with septic shock; J96.00 Acute respiratory failure, unspecified whether with hypoxia or hypercapnia; J18.9 Pneumonia, unspecified organism; I69.351 Hemiplegia and hemiparesis following cerebral infarction affecting right dominant side; I50.22 Chronic systolic (congestive) heart failure; I11.0 Hypertensive heart disease with heart failure; J40 Bronchitis, not specified as acute or chronic; D64.9 Anemia, unspecified; E11.9 Type 2 diabetes mellitus without complications; G40.909 Epilepsy, unspecified, not intractable, without status epilepticus; Z93.0 Tracheostomy status